=== PATIENT | female | born 1980 | race Caucasian/White ===

== ENCOUNTER 2020-02-09 16:21 | Emergency (ER) | payer BC, SELFPAY ==
[2020-02-09 16:22] VITALS: BP 122/84; PULSE 84; RESP 17; TEMP 36.9; O2SAT 98; BMI 34.1
--- NOTE | 2020-02-09 16:42 | HMH.EDUTC ---
[facility] [place] Clinical Impression: Sinusitis Qualifiers: Sinusitis location: unspecified location Chronicity: unspecified Qualified Code(s): J32.9 - Chronic sinusitis, unspecified Disposition: Home, Self-Care Condition on Discharge: Good Instructions: Sinusitis, Sinus Headache, DI for Sinusitis, Methylprednisolone, Azithromycin Additional Instructions: *Monitor Temp, Over the counter Motrin or Tylenol as directed/as needed Tylenol every 4 hours and Motrin every 6 hours (as long as your family doctor has told you that you can take it) for fever or pain. and straight to ER if unable to lower temp less than 101.0 after medication given *Warm salt water gargles may help to soothe the throat *Throat Lozenges *Warm fluids like tea with honey may help to soothe the throat *Sleep elevated *Humidifier/Vaporizer *Flonase 2 sprays in each nostril daily but be aware that it may take 2-3 days before you notice improvement Your throat swab was sent for culture. Those results are typically sent to your primary care. Be sure to follow up in 2-3 days with your family doctor/primary care physician if no improvement so they can review those result and treat if necessary. If you don?t have a primary care doctor, I recommend you get one but in the mean time, you will have to return to a walk in clinic Follow up IMMEDIATELY for new or worsening symptoms or no Noticeable improvement over the next 48-72 hours. 911 for difficulty breathing or swallowing Prescriptions: Fluticasone Propionate [Flonase 50mcg nasal spray 16gm] 1 spr NS DAILY #1 bottle Transmission Status: Pending to [facility] methylPREDNISolone [Medrol 4mg tab] 4 mg PO DIRECTED #21 tab Transmission Status: Pending to [facility] Azithromycin [Z-Spike 250mg Tab] 250 mg PO DIRECTED #6 tab Transmission Status: Pending to [facility] Referrals: Willa Mercado PA [Primary Care Provider] - As needed Time of Disposition: 16:50 Medical Decision Making - Shamir Inquiry Pt receiving controlled substance: No Shamir was queried for this patient: No Vital Signs: 02/09/20 16:22 Temperature 98.4 F Temperature Source Oral Pulse Rate [Radial] 84 Respiratory Rate 17 Blood Pressure [Right Arm] 122/84 Blood Pressure Mean [Right Arm] 96 Blood Pressure Source [Right Arm] Automatic Cuff Blood Pressure Position [Right Arm] Sitting 02 Sat by Pulse Oximetry 98 Oxygen Delivery Method Room Air - Lab Data Lab results reviewed: Yes: I reviewed the patient's lab results. Lab Results 02/09/20 16:38: Strep Scn Rapid Clinic Negative Orders (Tests/Meds): ORDERS Category Date Time Status Strep Screen Confirmation Stat Micro 02/09/20 16:38 [place]ceived [facility] [place] - General Stated complaint: PICKETT,Sore throat,Cough, Time Seen by Provider: 02/09/20 16:42 Mode of Arrival: Ambulatory Source of Information: Patient Limitations: No Limitations Description of Symptoms (Recalled from Triage Doc. by RN): headache, dizziness, cough, sore throat, runny nose, since yesterday HEENT Symptoms (Recalled from RN notes): Yes Resp Symptoms (Recalled from RN notes): No Skin Symptoms (Recalled from RN notes): No MS Symptoms (Recalled from RN notes): No Functional Status (Recalled from RN notes): wnl - History of Present Illness Provider Complaint: Patient states that she feels like she has a sinus infection State that she has been having sinus pain and pressure, headache, sore throat and nasal congestion on and off for over a week that has continued to get worse since yesterday States that today she was having more pressure in her right sinuses - Related Data Previous Rx's Medication Instructions Recorded Azithromycin [Z-Spike 250mg Tab] 250 mg PO DIRECTED #6 tab 02/09/20 Fluticasone Propionate [Flonase 1 spr NS DAILY #1 bottle 02/09/20 50mcg nasal spray 16gm] methylPREDNISolone [Medrol 4mg 4 mg PO DIRECTED #21 tab 02/09/20 tab] All
[2020-02-09 16:45] LABS: UTC Strep Screen (Rapid) Negative (Negative)
[2020-02-09 16:56] VITALS: BP 122/84; PULSE 84; RESP 17; TEMP 36.9; O2SAT 98
== END 2020-02-09 16:58 | disposition home or self-care (01) ==
PROVIDERS: Emergency Provider Nurse Practitioner; PCP Physician Assistant
DX: J32.9 Chronic sinusitis, unspecified (principal); Z88.0 Allergy status to penicillin; Z88.5 Allergy status to narcotic agent
CPT/HCPCS: 87880; 99201

== ENCOUNTER → 2020-04-18 08:42 | Outpatient (CLI) | payer BC, SELFPAY ==
[2020-04-18 09:11] LABS: Basophils # 0.1 K/mm3 (0-0.2); Basophils % 1.4 % (0.1-2.0); Eosinophils # 0.1 K/mm3 (0.0-0.4); Eosinophils % 2.5 % (0.1-12.0); Hemoglobin 14.2 g/dL (12.2-16.2); Lymphocytes # 2.1 K/mm3 (0.7-4.5); Lymphocytes % 38.7 % (10-50); Mean Corpuscular HGB Conc 34.5 g/dL (31.8-35.4); Mean Corpuscular Hemoglobin 30.5 pg (27.0-31.2); Mean Corpuscular Volume 88.2 fl (81-99); Mean Platelet Volume 8.3 fl (7.4-10.4); Monocytes # 0.3 K/mm3 (0.1-1.0); Monocytes % 5.8 % (1.7-9.3); Neutrophils # 2.8 K/mm3 (1.8-7.8); Neutrophils % 51.6 % (37.0-80.0); Platelet Count 265 K/mm3 (142-424); Red Blood Count 4.65 M/mm3 (4.20-5.40); Red Cell Distribution Width 13.2 % (11.5-17.5); White Blood Count 5.4 K/mm3 (4.8-10.8)
[2020-04-18 09:38] LABS: Alanine Aminotransferase 17 U/L (12-78); Albumin Level 4.3 g/dl (3.5-5.0); Albumin/Globulin Ratio 1.6 (1.1-1.8); Alkaline Phosphatase 91 U/L (38-126); Anion Gap 13.5 mEq/L (5-15); Aspartate Amino Transferase 24 U/L (14-36); Bilirubin,Total 0.5 mg/dl (0.2-1.3); Blood Urea Nitrogen 13 mg/dl (7-17); Calcium 9.7 mg/dl (8.4-10.2); Carbon Dioxide 29 mmol/L (22.0-30.0); Chloride 101 mmol/L (98-107); Chol/HDL Ratio 4.5 (1-3.5); Cholesterol 256 mg/dl (140-200); Estimated Glomerular Filt Rate 94 ml/min (>60); GFR (African American) 113 ML/MIN (>60); Globulin 2.7 g/dL (1.3-3.2); Glucose 121 mg/dl (74-100); HDL Cholesterol 57 mg/dl (40-60); Potassium 4.5 mmoL/L (3.5-5.1); Sodium 139 mmol/L (136-145); Triglycerides 164 mg/dl (30-150); VLDL Cholesterol 33 mg/dL (0-40)
[2020-04-18 09:49] LABS: Direct LDL Cholesterol 168.16 mg/dL (100-129)
[2020-04-18 09:55] LABS: 25-OH Vitamin D, Total 45.1 ng/mL (30-100)
[2020-04-18 10:09] LABS: Thyroid Stimulating Hormone 3.23 uIU/mL (0.465-4.68)
== END ==
PROVIDERS: Visit Provider Nurse Practitioner Family
DX: D64.9 Anemia, unspecified (principal); G43.909 Migraine, unspecified, not intractable, without status migrainosus
CPT/HCPCS: 36415; 80053; 80061; 82306; 84443; 85025

== ENCOUNTER 2020-10-12 09:02 | Emergency (ER) | payer BC, SELFPAY ==
--- NOTE | 2020-10-12 08:58 | ECG_ITS ---
APPROVED REPORT Exam: Resting ECG HR:73 bpm ECG Measurements Heart Rate 73 AXES IN 150 P 34 QRSd 88 QRS 38 QT 360 T 53 QTc 396 Conclusion Normal sinus rhythm Normal ECG Electronically signed by : Troy Gonzalez, 10/12/2020 17:46:15
[2020-10-12 09:02] VITALS: BP 128/90; PULSE 88; RESP 16; TEMP 36.8; O2SAT 98; BMI 37.2
[2020-10-12 09:03] VITALS: BMI 37.2
--- NOTE | 2020-10-12 09:03 | HMH.EDCP ---
ED Disposition Clinical Impression: Chest pain Qualifiers: Chest pain type: unspecified Qualified Code(s): R07.9 - Chest pain, unspecified Disposition: Home, Self-Care Condition on Discharge: Good Referrals: Javi Jenkins MD [Primary Care Provider] - 3 days - Critical Care Critical Care Time: No Attestation: On , the high probability of a clinically significant, sudden or life threatening deterioration of the following system(s) required my full and direct attention, intervention and personal management. The time I documented below is in addition to time spent performing reported procedures but includes the following listed in this critical care notation. Medical Decision Making - Medical Records Medical records reviewed: Yes: I reviewed the patient's medical records. - Shamir Inquiry Pt receiving controlled substance: No Vital Signs: 10/12/20 09:02 10/12/20 09:26 Temperature 98.2 F Temperature Source Oral Pulse Rate [Right Radial] 88 20 L Respiratory Rate 16 20 Blood Pressure [Right Arm] 128/90 126/90 Blood Pressure Mean [Right Arm] 102 102 Blood Pressure Source [Right Arm] Automatic Cuff Blood Pressure Position [Right Arm] Sitting 02 Sat by Pulse Oximetry 98 96 Oxygen Delivery Method Room Air - Lab Data Lab results reviewed: Yes: I reviewed the patient's lab results. Lab Results 10/12/20 09:00: WBC 6.5, RBC 4.97, Hgb 14.6, Hct 45.0, MCV 90.6, MCH 29.3, MCHC 32.4, RDW 12.9, Plt Count 267, MPV 8.2, Neut % (Auto) 58.4, Lymph % (Auto) 34.1, [place] % (Auto) 5.0, Eos % (Auto) 1.6, Baso % (Auto) 0.9, Neut # (Auto) 3.8, Lymph # (Auto) 2.2, [place] # (Auto) 0.3, Eos # (Auto) 0.1, Baso # (Auto) 0.1 10/12/20 09:00: Sodium 138, Potassium 4.0, Chloride 104, Carbon Dioxide 29, Anion Gap 9.0, BUN 10, Creatinine 0.70, Estimated Creat Clear 168, Estimated GFR 93, Est GFR ( Amer) 113, Glucose 140 H, Calcium 9.8, Troponin I < 0.01 Result diagrams: 10/12/20 09:00 10/12/20 09:00 Orders (Tests/Meds): ED MEDICATIONS Discontinued Medications Generic Name Dose Route Start Last Admin Trade Name Khushi SHORT Reason Stop Dose Admin Aspirin 324 mg 10/12/20 09:04 10/12/20 09:08 Aspirin 81mg Chewable Tablet PO 10/12/20 09:05 324 mg ONCE ONE Administration ORDERS Category Date Time Status Troponin I Q3H Lab 10/12/20 12:15 Ordered Troponin I Q3H Lab 10/12/20 15:15 Ordered - ECG Data Tracing #1 Normal sinus rhythm, 73 bpm, no ST elevation or depression, no ectopy, normal intervals. ECG initial impression date: 10/12/20 ECG initial impression time: 09:02 - SRIDHAR Score for Non-Stemi Age of Patient: 30-39 years old Heart Rate: 70-89 bpm Systolic Blood Pressure: 120-139 mmhg Serum Creatinine: 0.40-0.79 mg/dl CHF [place] Class: I-No CHF Other Risk Factors: None Non-Stemi Risk Score: 55 Medical Decision Narrative: 40yo F evaluated for chest pain. Differential diagnosis includes was not limited to: ACS/VA, PE, pneumonia, anxiety, aortic injury, GERD. Patient is in no acute distress on initial evaluation. Cardiac work-up has been initiated. Patient received 324 mg of p.o. aspirin. Patient's labs are unremarkable. Her chest x-ray is unremarkable. EKG is normal sinus rhythm without abnormal finding. All these results were discussed with the patient at bedside. Encouraged patient to follow-up with her PCP for further outpatient testing. Patient's SRIDHAR cardiac score is low risk. She is appropriate and stable for discharge home at this time. Chest Pain HPI - General Stated Complaint: CHEST PAIN Time Seen by Provider: 10/12/20 09:03 Mode of Arrival: Ambulatory Source of Information: Patient Limitations: No Limitations - History of Present Illness HPI narrative: 40yo F reports the emergency department secondary to chest pain. Patient reports chest pain has waxed and waned since Saturday. She reports her left arm pain is constant. She denies exertional component to her chest
--- NOTE | 2020-10-12 09:04 | XR_ITS ---
PROCEDURE: XR CHEST PORTABLE CLINICAL HISTORY: CHEST PAIN COMPARISON: No exams were available for comparison FINDINGS: The cardiomediastinal silhouette and pulmonary vascularity are within normal limits. The lungs are clear without infiltrates, suspicious nodules, or pleural effusions. No acute bony abnormalities. IMPRESSION: No acute findings. Dictated by: Shine Pelayo MD 10/12/2020 09:42 Shine Pelayo MD in [place] 10/12/2020 09:42
[2020-10-12 09:20] LABS: Chloride 104 mmol/L (98-107); Sodium 138 mmol/L (136-145)
[2020-10-12 09:23] LABS: Blood Urea Nitrogen 10 mg/dl (7-17); Carbon Dioxide 29 mmol/L (22.0-30.0); Creatinine Clearance Estimated 168 mL/min (50-200); Estimated Glomerular Filt Rate 93 ml/min (>60); GFR (African American) 113 ML/MIN (>60)
[2020-10-12 09:24] LABS: Calcium 9.8 mg/dl (8.4-10.2); Glucose 140 mg/dl (74-100)
[2020-10-12 09:26] VITALS: BP 126/90; PULSE 20; RESP 20; O2SAT 96
[2020-10-12 09:32] VITALS: PULSE 68; RESP 20; O2SAT 98
[2020-10-12 09:32] LABS: Basophils # 0.1 K/mm3 (0-0.2); Basophils % 0.9 % (0.1-2.0); Eosinophils # 0.1 K/mm3 (0.0-0.4); Eosinophils % 1.6 % (0.1-12.0); Hemoglobin 14.6 g/dL (12.2-16.2); Lymphocytes # 2.2 K/mm3 (0.7-4.5); Lymphocytes % 34.1 % (10-50); Mean Corpuscular HGB Conc 32.4 g/dL (31.8-35.4); Mean Corpuscular Hemoglobin 29.3 pg (27.0-31.2); Mean Corpuscular Volume 90.6 fl (81-99); Mean Platelet Volume 8.2 fl (7.4-10.4); Monocytes # 0.3 K/mm3 (0.1-1.0); Neutrophils # 3.8 K/mm3 (1.8-7.8); Neutrophils % 58.4 % (37.0-80.0); Platelet Count 267 K/mm3 (142-424); Red Blood Count 4.97 M/mm3 (4.20-5.40); Red Cell Distribution Width 12.9 % (11.5-17.5); White Blood Count 6.5 K/mm3 (4.8-10.8)
[2020-10-12 10:02] VITALS: PULSE 78; RESP 17; O2SAT 99
[2020-10-12 10:06] LABS: Troponin I < 0.01 ng/ml (0.00-0.034)
[2020-10-12 10:26] VITALS: BP 119/88; PULSE 81; RESP 17; TEMP 36.7; O2SAT 98
== END 2020-10-12 10:27 | disposition home or self-care (01) ==
PROVIDERS: Emergency Provider Family Medicine; PCP Emergency Medicine
DX: R07.9 Chest pain, unspecified (principal); R11.2 Nausea with vomiting, unspecified; K21.9 Gastro-esophageal reflux disease without esophagitis; G43.909 Migraine, unspecified, not intractable, without status migrainosus; Z88.0 Allergy status to penicillin; Z88.5 Allergy status to narcotic agent
CPT/HCPCS: 71045; 80048; 84484; 85025; 93005; 99283

== ENCOUNTER → 2021-03-01 12:20 | Outpatient (CLI) | payer BC, SELFPAY ==
--- NOTE | 2021-03-01 12:24 | XR_ITS ---
PROCEDURE: XR FOOT WT BEARING LT 3V CLINICAL INDICATION: Foot pain COMPARISON: No exams were available for comparison FINDINGS: No fracture or dislocation. No lytic or blastic change. There is normal mineralization. The joint spaces are well-preserved. No significant degenerative/arthritic changes. No erosive changes evident. Other findings:None. IMPRESSION: No acute findings. Dictated by: Shine Pelayo MD 03/01/2021 13:23 Shine Pelayo MD in [place] 03/01/2021 13:23
[2021-03-01 14:07] LABS: Chloride 106 mmol/L (98-107)
[2021-03-01 14:08] LABS: Potassium 4.4 mmoL/L (3.5-5.1); Sodium 140 mmol/L (136-145)
[2021-03-01 14:10] LABS: Alanine Aminotransferase 18 U/L (12-78); Albumin Level 4.5 g/dl (3.5-5.0); Albumin/Globulin Ratio 1.6 (1.1-1.8); Alkaline Phosphatase 96 U/L (38-126); Anion Gap 13.4 mEq/L (5-15); Aspartate Amino Transferase 25 U/L (14-36); Bilirubin,Total 0.4 mg/dl (0.2-1.3); Blood Urea Nitrogen 12 mg/dl (7-17); Carbon Dioxide 25 mmol/L (22.0-30.0); Estimated Glomerular Filt Rate 111 ml/min (>60); GFR (African American) 135 ML/MIN (>60); Globulin 2.9 g/dL (1.3-3.2); Total Protein,Serum 7.4 g/dl (6.3-8.2)
[2021-03-01 14:11] LABS: Calcium 9.3 mg/dl (8.4-10.2); Chol/HDL Ratio 5.9 (1-3.5); Cholesterol 258 mg/dl (140-200); Glucose 113 mg/dl (74-100); HDL Cholesterol 44 mg/dl (40-60); Triglycerides 267 mg/dl (30-150); VLDL Cholesterol 53 mg/dL (0-40)
[2021-03-01 14:22] LABS: Direct LDL Cholesterol 170.94 mg/dL (100-129)
[2021-03-01 14:29] LABS: Basophils # 0.1 K/mm3 (0-0.2); Basophils % 1.4 % (0.1-2.0); Eosinophils # 0.1 K/mm3 (0.0-0.4); Eosinophils % 1.7 % (0.1-12.0); Hematocrit 39.8 % (37.0-47.0); Hemoglobin 13.7 g/dL (12.2-16.2); Lymphocytes # 2.2 K/mm3 (0.7-4.5); Lymphocytes % 37.2 % (10-50); Mean Corpuscular HGB Conc 34.3 g/dL (31.8-35.4); Mean Corpuscular Hemoglobin 29.8 pg (27.0-31.2); Mean Corpuscular Volume 86.9 fl (81-99); Mean Platelet Volume 11.1 fl (7.4-10.4); Monocytes # 0.4 K/mm3 (0.1-1.0); Monocytes % 6.2 % (1.7-9.3); Neutrophils # 3.1 K/mm3 (1.8-7.8); Neutrophils % 53.6 % (37.0-80.0); Platelet Count 303 K/mm3 (142-424); Red Blood Count 4.58 M/mm3 (4.20-5.40); Red Cell Distribution Width 13.1 % (11.5-17.5); White Blood Count 5.9 K/mm3 (4.8-10.8)
[2021-03-01 14:41] LABS: Thyroid Stimulating Hormone 2.61 uIU/mL (0.465-4.68)
[2021-03-01 14:53] LABS: Hemoglobin A1C 5.2 % (4.0-6.0)
[2021-03-10 10:31] LABS: Cotinine <1.0; Nicotine <1.0
== END ==
PROVIDERS: PCP Nurse Practitioner Family; Visit Provider Nurse Practitioner Family
DX: Z00.00 Encounter for general adult medical examination without abnormal findings (principal); M79.672 Pain in left foot
CPT/HCPCS: 73630; 80053; 80061; 80323; 83036; 84443; 85025

== ENCOUNTER → 2021-05-03 15:05 | Outpatient (CLI) | payer BC, SELFPAY ==
[2021-05-03 17:01] VITALS: BMI 37.0
== END ==
PROVIDERS: PCP Nurse Practitioner Family; Visit Provider Nurse Practitioner Family
DX: Z71.3 Dietary counseling and surveillance (principal); E66.3 Overweight; Z68.37 Body mass index [BMI] 37.0-37.9, adult; R73.03 Prediabetes
CPT/HCPCS: 97802

== ENCOUNTER → 2022-09-10 16:14 | Outpatient (CLI) | payer BC, SELFPAY ==
[2022-09-13 21:08] LABS: Neisseria gonorrhoeae, NAA Negative (Negative)
== END ==
PROVIDERS: PCP Student in an Organized Health Care Education/Training Program; Visit Provider Student in an Organized Health Care Education/Training Program
DX: R30.0 Dysuria (principal)
CPT/HCPCS: 87086; 87491; 87591

== ENCOUNTER → 2022-09-14 11:59 | Outpatient (CLI) | payer BC, SELFPAY ==
[2022-09-14 13:44] LABS: Basophils # 0.1 K/mm3 (0-0.2); Basophils % 1.6 % (0.1-2.0); Eosinophils # 0.1 K/mm3 (0.0-0.4); Hematocrit 42.1 % (37.0-47.0); Lymphocytes # 2.1 K/mm3 (0.7-4.5); Lymphocytes % 36.3 % (10-50); Mean Corpuscular HGB Conc 33.3 g/dL (31.8-35.4); Mean Corpuscular Hemoglobin 29.9 pg (27.0-31.2); Mean Corpuscular Volume 89.7 fl (81-99); Mean Platelet Volume 9.3 fl (7.4-10.4); Monocytes # 0.4 K/mm3 (0.1-1.0); Monocytes % 6.2 % (1.7-9.3); Neutrophils # 3.2 K/mm3 (1.8-7.8); Neutrophils % 54.9 % (37.0-80.0); Platelet Count 265 K/mm3 (142-424); Red Blood Count 4.69 M/mm3 (4.20-5.40); Red Cell Distribution Width 12.9 % (11.5-17.5); White Blood Count 5.8 K/mm3 (4.8-10.8)
[2022-09-14 14:06] LABS: Alanine Aminotransferase 22 U/L (12-78); Albumin Level 4.9 g/dl (3.5-5.0); Albumin/Globulin Ratio 1.8 (1.1-1.8); Alkaline Phosphatase 79 U/L (38-126); Anion Gap 13.1 mEq/L (5-15); Aspartate Amino Transferase 28 U/L (14-36); Bilirubin,Total 0.6 mg/dl (0.2-1.3); Blood Urea Nitrogen 9 mg/dl (7-17); Calcium 9.2 mg/dl (8.4-10.2); Carbon Dioxide 28 mmol/L (22.0-30.0); Chloride 103 mmol/L (98-107); Chol/HDL Ratio 4.6 (1-3.5); Cholesterol 221 mg/dl (140-200); Estimated Glomerular Filt Rate 92 ml/min (>60); GFR (African American) 112 ML/MIN (>60); Globulin 2.8 g/dL (1.3-3.2); Glucose 98 mg/dl (74-100); HDL Cholesterol 48 mg/dl (40-60); Potassium 4.1 mmoL/L (3.5-5.1); Sodium 140 mmol/L (136-145); Total Protein,Serum 7.7 g/dl (6.3-8.2); Triglycerides 163 mg/dl (30-150); VLDL Cholesterol 33 mg/dL (0-40)
[2022-09-14 14:17] LABS: Direct LDL Cholesterol 134.65 mg/dL (100-129)
[2022-09-14 14:24] LABS: 25-OH Vitamin D, Total 44.6 ng/mL (30-100)
[2022-09-14 14:37] LABS: Thyroid Stimulating Hormone 2.02 uIU/mL (0.465-4.68)
[2022-09-14 17:23] LABS: Hemoglobin A1C 5.6 % (4.0-6.0)
== END ==
PROVIDERS: PCP Student in an Organized Health Care Education/Training Program; Visit Provider Obstetrics & Gynecology
DX: Z01.419 Encounter for gynecological examination (general) (routine) without abnormal findings (principal); E66.9 Obesity, unspecified; Z68.35 Body mass index [BMI] 35.0-35.9, adult
CPT/HCPCS: 36415; 80053; 80061; 82306; 83036; 84443; 85025

== ENCOUNTER → 2022-11-01 11:00 | Outpatient (CLI) | payer BC, SELFPAY ==
[2022-11-01 19:09] LABS: Basophils # 0.1 K/mm3 (0-0.2); Basophils % 1.2 % (0.1-2.0); Eosinophils # 0.1 K/mm3 (0.0-0.4); Eosinophils % 1.4 % (0.1-12.0); Hematocrit 45.2 % (37.0-47.0); Hemoglobin 14.6 g/dL (12.2-16.2); Lymphocytes # 1.9 K/mm3 (0.7-4.5); Lymphocytes % 35.5 % (10-50); Mean Corpuscular HGB Conc 32.4 g/dL (31.8-35.4); Mean Corpuscular Hemoglobin 29.1 pg (27.0-31.2); Mean Corpuscular Volume 90.1 fl (81-99); Mean Platelet Volume 12.2 fl (7.4-10.4); Monocytes # 0.3 K/mm3 (0.1-1.0); Monocytes % 5.6 % (1.7-9.3); Neutrophils % 56.3 % (37.0-80.0); Platelet Count 320 K/mm3 (142-424); Red Blood Count 5.02 M/mm3 (4.20-5.40); Red Cell Distribution Width 12.8 % (11.5-17.5); White Blood Count 5.3 K/mm3 (4.8-10.8)
[2022-11-01 19:23] LABS: Alanine Aminotransferase 20 U/L (12-78); Albumin Level 4.4 g/dl (3.5-5.0); Albumin/Globulin Ratio 1.7 (1.1-1.8); Alkaline Phosphatase 82 U/L (38-126); Anion Gap 13.8 mEq/L (5-15); Aspartate Amino Transferase 24 U/L (14-36); Bilirubin,Total 0.7 mg/dl (0.2-1.3); Blood Urea Nitrogen 12 mg/dl (7-17); Calcium 8.8 mg/dl (8.4-10.2); Carbon Dioxide 26 mmol/L (22.0-30.0); Chloride 102 mmol/L (98-107); Chol/HDL Ratio 5.7 (1-3.5); Cholesterol 249 mg/dl (140-200); Estimated Glomerular Filt Rate 79 ml/min (>60); GFR (African American) 96 ML/MIN (>60); Globulin 2.6 g/dL (1.3-3.2); Glucose 108 mg/dl (74-100); HDL Cholesterol 44 mg/dl (40-60); Magnesium 2.1 mg/dl (1.6-2.3); Potassium 4.8 mmoL/L (3.5-5.1); Sodium 137 mmol/L (136-145); Triglycerides 173 mg/dl (30-150); VLDL Cholesterol 35 mg/dL (0-40)
[2022-11-01 19:34] LABS: Direct LDL Cholesterol 158.86 mg/dL (100-129)
[2022-11-01 19:53] LABS: Thyroid Stimulating Hormone 2.06 uIU/mL (0.465-4.68)
[2022-11-01 20:12] LABS: Vitamin B12 308 pg/mL (239-931)
== END ==
PROVIDERS: PCP Student in an Organized Health Care Education/Training Program; Visit Provider Student in an Organized Health Care Education/Training Program
DX: R42 Dizziness and giddiness (principal); Z13.220 Encounter for screening for lipoid disorders; Z79.899 Other long term (current) drug therapy
CPT/HCPCS: 80053; 80061; 82607; 83735; 84443; 85025

== ENCOUNTER → 2023-07-01 11:49 | Outpatient (CLI) | payer BC, SELFPAY ==
[2023-07-01 12:10] LABS: Basophils # 0.1 K/mm3 (0-0.2); Basophils % 0.7 % (0.1-2.0); Eosinophils # 0.1 K/mm3 (0.0-0.4); Hematocrit 38.3 % (37.0-47.0); Hemoglobin 13.5 g/dL (12.2-16.2); Lymphocytes % 28.2 % (10-50); Mean Corpuscular HGB Conc 35.2 g/dL (31.8-35.4); Mean Corpuscular Hemoglobin 31.2 pg (27.0-31.2); Mean Corpuscular Volume 88.5 fl (81-99); Mean Platelet Volume 8.9 fl (7.4-10.4); Monocytes # 0.3 K/mm3 (0.1-1.0); Monocytes % 4.8 % (1.7-9.3); Neutrophils # 4.5 K/mm3 (1.8-7.8); Neutrophils % 64.4 % (37.0-80.0); Platelet Count 242 K/mm3 (142-424); Red Blood Count 4.32 M/mm3 (4.20-5.40); Red Cell Distribution Width 12.7 % (11.5-17.5)
--- NOTE | 2023-07-01 12:10 | XR_ITS ---
FINAL REPORT CLINICAL HISTORY: pleuritic pain chest pain since last night FINDINGS: 2 views of the chest were obtained . The heart is normal in size. The mediastinum is within normal limits. The lungs are clear. There is no pneumothorax. Osseous structures are unremarkable. IMPRESSION: No acute cardiopulmonary process. Reviewed, Interpreted and Dictated by Guillermo Arias MD Transcribed by Dominique Suarez Authenticated and [facility]
[2023-07-01 12:20] LABS: Hemoglobin A1C 5.7 % (4.0-6.0)
[2023-07-01 12:21] LABS: D-Dimer 0.77 ug/mL (0.0-0.5)
[2023-07-01 12:35] LABS: Alanine Aminotransferase 18 U/L (12-78); Albumin/Globulin Ratio 1.5 (1.1-1.8); Alkaline Phosphatase 86 U/L (38-126); Anion Gap 10.9 mEq/L (5-15); Aspartate Amino Transferase 22 U/L (14-36); Bilirubin,Total 0.6 mg/dl (0.2-1.3); Blood Urea Nitrogen 10 mg/dl (7-17); Calcium 8.7 mg/dl (8.4-10.2); Carbon Dioxide 28 mmol/L (22.0-30.0); Chloride 103 mmol/L (98-107); Chol/HDL Ratio 5.6 (1-3.5); Cholesterol 228 mg/dl (140-200); Estimated Glomerular Filt Rate 79 ml/min (>60); GFR (African American) 95 ML/MIN (>60); Globulin 2.7 g/dL (1.3-3.2); Glucose 127 mg/dl (74-100); HDL Cholesterol 41 mg/dl (40-60); Potassium 3.9 mmoL/L (3.5-5.1); Sodium 138 mmol/L (136-145); Total Protein,Serum 6.7 g/dl (6.3-8.2); Triglycerides 226 mg/dl (30-150); VLDL Cholesterol 45 mg/dL (0-40)
[2023-07-01 12:47] LABS: Direct LDL Cholesterol 144.68 mg/dL (100-129)
[2023-07-01 12:52] LABS: Troponin I < 0.01 ng/ml (0.00-0.034)
[2023-07-01 12:56] LABS: 25-OH Vitamin D, Total 33.4 ng/mL (30-100)
[2023-07-01 13:05] LABS: Thyroid Stimulating Hormone 1.71 uIU/mL (0.465-4.68)
== END ==
PROVIDERS: PCP Student in an Organized Health Care Education/Training Program; Visit Provider Student in an Organized Health Care Education/Training Program
DX: E78.00 Pure hypercholesterolemia, unspecified (principal); Z13.29 Encounter for screening for other suspected endocrine disorder; R07.81 Pleurodynia; R73.9 Hyperglycemia, unspecified; Z68.37 Body mass index [BMI] 37.0-37.9, adult
CPT/HCPCS: 36415; 71046; 80053; 80061; 82306; 83036; 84443; 84484; 85025; 85378

== ENCOUNTER 2023-07-01 13:26 | Emergency (ER) | payer BC, SELFPAY ==
[2023-07-01] VITALS (8 sets, daily range): BP systolic 104–142; BP diastolic 63–84; PULSE 71–83; RESP 16–24; TEMP 37.1; O2SAT 95–100; BMI 36.7
--- NOTE | 2023-07-01 13:23 | ECG_ITS ---
APPROVED REPORT Exam: Resting ECG HR:75 bpm ECG Measurements Heart Rate 75 AXES NM 145 P 35 QRSd 89 QRS 61 QT 357 T 56 QTc 386 Conclusion SINUS RHYTHM LOW QRS VOLTAGE IN PRECORDIAL LEADS [QRS DEFLECTION < 1.0 mV IN CHEST LEADS] BORDERLINE ECG UNCONFIRMED REPORT Electronically signed by : Troy Gonzalez MD 07/02/2023 20:13:02
[2023-07-01 13:42] LABS: Basophils % 0.5 % (0.1-2.0); Eosinophils # 0.1 K/mm3 (0.0-0.4); Eosinophils % 1.5 % (0.1-12.0); Hematocrit 40.2 % (37.0-47.0); Hemoglobin 13.9 g/dL (12.2-16.2); Lymphocytes # 2.2 K/mm3 (0.7-4.5); Mean Corpuscular HGB Conc 34.6 g/dL (31.8-35.4); Mean Corpuscular Hemoglobin 30.6 pg (27.0-31.2); Mean Corpuscular Volume 88.4 fl (81-99); Mean Platelet Volume 8.6 fl (7.4-10.4); Monocytes # 0.5 K/mm3 (0.1-1.0); Neutrophils # 5.2 K/mm3 (1.8-7.8); Platelet Count 232 K/mm3 (142-424); Red Blood Count 4.55 M/mm3 (4.20-5.40); Red Cell Distribution Width 12.8 % (11.5-17.5)
--- NOTE | 2023-07-01 13:49 | HMH.EDGENADL ---
Discharge Plan Disposition Patient Disposition: Home, Self-Care Prescriptions Prescriptions: No Action aspirin 81 mg tablet,delayed release (DR/EC) 81 mg PO DAILY Qty: 30 2RF atorvastatin 20 mg tablet 20 mg PO DAILY Qty: 30 2RF fluticasone propionate [Allergy Relief (fluticasone)] 50 mcg/actuation spray,suspension 1 spray intranasal DAILY Qty: 16 2RF Rx Instructions: administer into each nostril naproxen 500 mg tablet 500 mg PO BID Qty: 20 0RF Referrals Follow up/Referrals: Keyshawn Jurado MD [Staff Physician] - See instructions Provider,MD Rosendo [Referring] - See instructions Activity Restrictions/Add. Instructions Additional Instructions/Restrictions: At this time it was felt you are safe to be discharged home. If new or worsening symptoms please do not hesitate to return the emergency department. Please call Dr. Jurado to schedule an appointment as soon as you are able. Clinical Impressions Clinical Impression: Chest pain, pleuritic Instructions Patient Instructions: DI for Atypical Chest Pain Discharge ED Provider: Wes Tobar General Adult HPI <Jose L Montemayor MD - Last Filed: 07/03/23 08:08> General Chief complaint: Chest Pain Stated complaint: chest pain Time Seen by Provider: 07/01/23 13:30 Mode of Arrival: Ambulatory Source of Information: Patient Limitations: No Limitations Description of Symptoms (Recalled from ER Triage Doc. by RN): pt has been having chest pain and soa off and on for two weeks, pt was seen at pcp office this morning and had lab work done, xray and ekg. pt has hx of CA in 2016 with negative clean cath at [facility] History of Present Illness HPI narrative: 43-year-old female history of vasospastic angina presenting with chest pain. Patient states that pain started a couple days prior to arrival, got acutely worse today, 07/01 in her sleep. Woke her up. Initially in her back, since that time, it is now left of sternum, radiates toward her back, associated with shortness of breath. Made worse with deep inspiration, lying down, made made better by standing up. No neurologic deficits, nausea or vomiting, diaphoresis, or any other concerns. Because of history, came to the emergency department for further evaluation. Patient states that she is also under significant stress with school and thinks this may be related, but wanted to be checked out just in case. Related Data Previous Rx's Medication Instructions Recorded aspirin 81 mg tablet,delayed 81 mg PO DAILY #30 tabs 07/01/23 release atorvastatin 20 mg tablet 20 mg PO DAILY #30 tabs 07/01/23 fluticasone propionate 50 1 spray intranasal DAILY #16 grams 07/01/23 mcg/actuation nasal spray,suspension (Allergy Relief (fluticasone)) naproxen 500 mg tablet 500 mg PO BID #20 tabs 07/01/23 Allergies Allergy/AdvReac Type Severity Reaction Status Date / Time codeine Allergy Mild Verified 07/02/23 14:37 hydrocodone [From Vicodin] Allergy Mild Verified 07/02/23 14:37 oxycodone [From Percocet] Allergy Mild Verified 07/02/23 14:37 Penicillins Allergy Mild Verified 07/02/23 14:37 [facility] <Jose L Montemayor MD - Last Filed: 07/03/23 08:08> [facility] Disclaimer: The information contained in this section may have been updated after the patient was seen, as this information can be updated by other users. Medical History (Updated 07/02/23 @ 15:02 by Messi Varner RN) Dyspnea Edema Family history of bladder cancer Family history of cervical cancer Family history of uterine cancer Heart attack History of abnormal cervical Papanicolaou smear History of heart attack Lichen sclerosus of vulva Prinzmetal angina Urinary frequency Vaginal pain Vulvodynia Surgical History History of bilateral tubal ligation History of laparoscopic-assisted vaginal hysterectomy History of reversal of tubal ligation Family History (Reviewed 07/02/23 @ 14:39 by
[2023-07-01 13:50] LABS: Alanine Aminotransferase 21 U/L (12-78); Albumin Level 4.3 g/dl (3.5-5.0); Albumin/Globulin Ratio 1.3 (1.1-1.8); Alkaline Phosphatase 86 U/L (38-126); Anion Gap 13.7 mEq/L (5-15); Aspartate Amino Transferase 24 U/L (14-36); Bilirubin,Total 0.5 mg/dl (0.2-1.3); Blood Urea Nitrogen 11 mg/dl (7-17); Carbon Dioxide 27 mmol/L (22.0-30.0); Chloride 104 mmol/L (98-107); Creatinine Clearance Estimated 140 mL/min (50-200); Estimated Glomerular Filt Rate 79 ml/min (>60); GFR (African American) 95 ML/MIN (>60); Globulin 3.3 g/dL (1.3-3.2); Glucose 98 mg/dl (74-100); Lipase 70 U/L (23-300); Potassium 3.7 mmoL/L (3.5-5.1); Sodium 141 mmol/L (136-145); Total Protein,Serum 7.6 g/dl (6.3-8.2)
[2023-07-01 14:04] LABS: Troponin I < 0.01 ng/ml (0.00-0.034)
[2023-07-01 14:21] LABS: Thyroid Stimulating Hormone 2.05 uIU/mL (0.465-4.68)
--- NOTE | 2023-07-01 14:41 | CT_ITS ---
FINAL REPORT TECHNIQUE: The patient was injected with IV contrast. Axial images were obtained through the chest in a PE protocol. 3-D reconstruction images were also performed. Individualized dose reduction techniques using automated exposure control or adjustment of the MA and/or KV according to patient's size were employed. CLINICAL HISTORY: elevated dimer, pleuritic L CP FINDINGS: Mediastinal vasculature is adequately opacified. No pulmonary artery filling defects are identified to suggest PE. There is no aortic dissection. There is no axillary adenopathy. There is no hilar or mediastinal adenopathy. The heart size is normal. There is no pericardial or pleural effusion. Limited images of the upper abdomen are remarkable for a contracted gallbladder. There are mild ground glass opacities noted bilaterally. IMPRESSION: No pulmonary embolus or dissection. Mild bilateral ground glass opacities, nonspecific. Reviewed, Interpreted and Dictated by Guillermo Arias MD Transcribed by Audra Oswald Authenticated and [facility]
--- NOTE | 2023-07-01 14:54 | PC.NURSE ---
radiology at bedside to take pt to CT
[2023-07-01 15:22] LABS: T4 (Thyroxine) 6.8 ug/dl (5.53-11.0)
[2023-07-01 17:13] LABS: Troponin I < 0.01 ng/ml (0.00-0.034)
== END 2023-07-01 17:43 | disposition home or self-care (01) ==
PROVIDERS: Emergency Medicine; Emergency Provider Emergency Medicine; PCP Student in an Organized Health Care Education/Training Program; Referring Provider Student in an Organized Health Care Education/Training Program
DX: R07.9 Chest pain, unspecified (principal); R06.02 Shortness of breath
CPT/HCPCS: 36415; 71275; 80053; 83690; 84436; 84443; 84484; 85025; 93005; 99285; Q9967

== ENCOUNTER 2024-03-12 09:51 | Outpatient (CLI) | payer BC, SELFPAY ==
--- NOTE | 2024-03-12 09:57 | MM_ITS ---
PROCEDURE INFORMATION: Exam: MG Bilateral Screening 3D Mammography Exam date and time: 03/12/2024 9:46 AM Age: 43 years old Clinical indication: Screening examination TECHNIQUE: Imaging protocol: Bilateral Screening tomosynthesis and 2D mammography including computer-aided detection (CAD) when performed. COMPARISON: No relevant prior studies available. Baseline FINDINGS: MAMMOGRAPHY: Breast composition: There are scattered areas of fibroglandular density. Mass: None. Architectural distortion: None. Calcifications: No suspicious calcifications. Asymmetric density: Nonspecific tissue asymmetry in the posterior right upper outer quadrant likely reflects an island of normal overlapping fibroglandular structures. Skin thickening: None. Axillary adenopathy: None. IMPRESSION: Patient to be recalled for spot compression views of the right breast in the CC and MLO projections, a full 90 degree lateral view, and possible right breast ultrasound for further evaluation of a right breast asymmetry. ASSESSMENT: BI-RADS Category 0: Incomplete- Need Additional Imaging Evaluation and/or Prior Mammograms for Comparison.
[2024-03-12 18:23] LABS: Basophils # 0.1 K/mm3 (0-0.2); Basophils % 1.2 % (0.1-2.0); Eosinophils # 0.1 K/mm3 (0.0-0.4); Eosinophils % 1.4 % (0.1-12.0); Hematocrit 44.8 % (37.0-47.0); Hemoglobin 14.6 g/dL (12.2-16.2); Lymphocytes # 2.1 K/mm3 (0.7-4.5); Lymphocytes % 34.4 % (10-50); Mean Corpuscular HGB Conc 32.7 g/dL (31.8-35.4); Mean Corpuscular Hemoglobin 30.2 pg (27.0-31.2); Mean Corpuscular Volume 92.5 fl (81-99); Monocytes # 0.3 K/mm3 (0.1-1.0); Monocytes % 5.6 % (1.7-9.3); Neutrophils # 3.5 K/mm3 (1.8-7.8); Neutrophils % 57.5 % (37.0-80.0); Platelet Count 309 K/mm3 (142-424); Red Blood Count 4.84 M/mm3 (4.20-5.40); Red Cell Distribution Width 13.2 % (11.5-17.5); White Blood Count 6.1 K/mm3 (4.8-10.8)
[2024-03-12 18:30] LABS: Alanine Aminotransferase 29 U/L (12-78); Albumin Level 4.1 g/dl (3.5-5.0); Albumin/Globulin Ratio 1.4 (1.1-1.8); Alkaline Phosphatase 84 U/L (38-126); Anion Gap 10.6 mEq/L (5-15); Aspartate Amino Transferase 29 U/L (14-36); Bilirubin,Total 0.6 mg/dl (0.2-1.3); Blood Urea Nitrogen 11 mg/dl (7-17); Calcium 9.7 mg/dl (8.4-10.2); Carbon Dioxide 27 mmol/L (22.0-30.0); Chloride 106 mmol/L (98-107); Chol/HDL Ratio 6.4 (1-3.5); Cholesterol 293 mg/dl (140-200); Estimated Glomerular Filt Rate 92 ml/min (>60); GFR (African American) 111 ML/MIN (>60); Globulin 2.9 g/dL (1.3-3.2); Glucose 106 mg/dl (74-100); HDL Cholesterol 46 mg/dl (40-60); Potassium 4.6 mmoL/L (3.5-5.1); Sodium 139 mmol/L (136-145); Triglycerides 281 mg/dl (30-150); VLDL Cholesterol 56 mg/dL (0-40)
[2024-03-12 18:42] LABS: Direct LDL Cholesterol 180.53 mg/dL (100-129)
[2024-03-12 18:46] LABS: 25-OH Vitamin D, Total 37.4 ng/mL (30-100)
[2024-03-12 19:02] LABS: Thyroid Stimulating Hormone 1.78 uIU/mL (0.465-4.68)
[2024-03-12 19:59] LABS: Hemoglobin A1C 5.4 % (4.0-6.0)
[2024-03-12 20:04] LABS: Iron 118 ug/dL (37-170)
[2024-03-12 20:15] LABS: Total Iron Binding Capacity 343 ug/dL (265-497)
[2024-03-12 20:16] LABS: Folate > 20.00 ng/mL; Vitamin B12 363 pg/mL (239-931)
[2024-03-12 20:51] LABS: Ferritin 81.2 ng/ml (6.24-137)
== END 2024-03-12 23:59 | disposition home or self-care (01) ==
LOC: RAD 09:51
PROVIDERS: PCP Student in an Organized Health Care Education/Training Program; Visit Provider Obstetrics & Gynecology
DX: Z12.31 Encounter for screening mammogram for malignant neoplasm of breast (principal); R53.83 Other fatigue; E78.5 Hyperlipidemia, unspecified; R73.9 Hyperglycemia, unspecified; E66.9 Obesity, unspecified; Z68.35 Body mass index [BMI] 35.0-35.9, adult
CPT/HCPCS: 77063; 77067; 80050; 80053; 80061; 82306; 82607; 82728; 82746; 83036; 83540; 83550; 84443; 85025

== ENCOUNTER 2024-03-20 14:23 | Outpatient (CLI) | payer BC, SELFPAY ==
--- NOTE | 2024-03-20 14:23 | US_ITS ---
PROCEDURE INFORMATION: Exam: US Right Breast, Complete MG Right Diagnostic Breast Tomosynthesis Exam date and time: 03/20/2024 2:52 PM Age: 43 years old Clinical indication: Callback for additional assessment of upper outer posterior right possible asymmetry suspected on 03/12/2024 screening mammogram TECHNIQUE: Imaging protocol: Complete ultrasound of all four quadrants of the right breast and the retroareolar regions, including ultrasound of the axilla when performed. Right Diagnostic tomosynthesis and 2D mammography including computer-aided detection (CAD) when performed. Unilateral or bilateral exam. COMPARISON: MG MM DIG MAMM DX UNILAT RT CAD 03/20/2024 2:10 PM FINDINGS: MAMMOGRAPHY: Breast composition: There are scattered areas of fibroglandular density. Breast mammogram findings: No persistent mass, architectural distortion, or suspicious calcifications are present to suggest malignancy. Findings from recent screening mammography probably reflect overlapping fibroglandular tissue ULTRASOUND: Breast ultrasound findings: Right 4 quadrants and retroareolar breast ultrasound and right axilla ultrasound Only normal glandular structures are present in the regions assessed No suspicious solid or cystic mass is present. No benign-appearing solid or cystic mass is present. No architectural distortion or shadowing is present. No axillary adenopathy is present. IMPRESSION: No mammographic or sonographic evidence of malignancy. Recommend annual screening mammography unless otherwise clinically indicated. ASSESSMENT: BI-RADS category 1: Negative
== END 2024-03-20 23:59 | disposition home or self-care (01) ==
LOC: RAD 14:23
PROVIDERS: PCP Student in an Organized Health Care Education/Training Program; Visit Provider Obstetrics & Gynecology
DX: R92.8 Other abnormal and inconclusive findings on diagnostic imaging of breast (principal)
CPT/HCPCS: 76641; 77061; 77065; G0279

== ENCOUNTER 2024-12-03 10:15 | Outpatient (CLI) | payer BC, SELFPAY ==
[2024-12-04 09:00] LABS: Albumin Level 4.2 g/dl (3.5-5.0); Chloride 103 mmol/L (98-107)
[2024-12-04 09:01] LABS: Potassium 4.4 mmoL/L (3.5-5.1); Sodium 137 mmol/L (136-145)
[2024-12-04 09:03] LABS: Alanine Aminotransferase 42 U/L (12-78); Albumin/Globulin Ratio 1.5 (1.1-1.8); Alkaline Phosphatase 85 U/L (38-126); Anion Gap 12.4 mEq/L (5-15); Aspartate Amino Transferase 36 U/L (14-36); Bilirubin,Total 0.6 mg/dl (0.2-1.3); Blood Urea Nitrogen 10 mg/dl (7-17); Carbon Dioxide 26 mmol/L (22.0-30.0); Cholesterol 272 mg/dl (140-200); Estimated Glomerular Filt Rate 109 ml/min (>60); GFR (African American) 132 ML/MIN (>60); Globulin 2.8 g/dL (1.3-3.2); Triglycerides 289 mg/dl (30-150); VLDL Cholesterol 58 mg/dL (0-40)
[2024-12-04 09:04] LABS: Chol/HDL Ratio 5.9 (1-3.5); Glucose 120 mg/dl (74-100); HDL Cholesterol 46 mg/dl (40-60)
[2024-12-04 09:15] LABS: Direct LDL Cholesterol 178.79 mg/dL (100-129)
[2024-12-04 09:24] LABS: Free T4 (Free Thyroxine) 0.86 ng/dl (0.78-2.19)
[2024-12-04 09:38] LABS: Thyroid Stimulating Hormone 1.51 uIU/mL (0.465-4.68)
--- OUTSIDE RECORDS SUMMARY | 2024-12-04 11:40 | XMS_ITS | Clinical Summary ---
Author Organization [facility] , [facility] Address [address] [place] [address] Phone Care Team Providers Care Associate Merchant Name Role Phone Ronaldo Pereyra PA-C Unavailable Luz Marina Hernandez Unavailable [phone] Reason for Visit and Chief Complaint The Chief Complaint is: LOWER BACK PAIN & LEG PAIN Problems Includes: Problems addressed during this encounter and other active Problems Current Visit Onset Date Resolved Date Provider Aline appiah Status Lower Back Pain 03/13/2024 Ronaldo Pereyra PA-C Active Last Documented On 4 1:34PM ; [facility], [facility] Plan of Treatment Patient was seen by myself Javi Vital PA-C. Patient will follow up myself and Dr. Olguin after lumbar spine MRI. We will give her restrictions of seated work since he says anything that she is doing with bending or twisting or patient involvement has been waking this pain worse. - Last Documented On 03/25/2024 2:30PM ; [facility], [facility] Pending Tests Order Diagnosis Results Due Ordering P rovider Therapy - Physical Therapy Lumbar Low back pain, unspecified 03/18/24 Javi Vital PA-C Last Documented On 4 2:30PM ; [facility] Radiology - MRI MRI Lumbar Spine Low back pain, unspecified 04/01/24 Javi Vital PA-C Last Documented On 4 2:30PM ; [facility], [facility] Instructions to patient Lose weight Last Documented On 4 3:37PM ; [facility], [facility] Assessments Includes: Assessments from this encounter Findings - Overweight - Last Documented On 03/25/2024 2:30PM ; [facility], [facility] L4-L5 spondylolisthesis and right L5 radiculopathy - Last Documented On 03/25/2024 2:30PM ; [facility] Instructions Includes: Instructions from this encounter Instructions to patient Lose weight Last Documented On 4 3:37PM ; [facility] Medical Equipment - Implanted Devices Includes: Current Devices No Medical Equipment Recorded Medications Includes: Medications discussed during this encounter and other current Medications Current Medications (continue as prescribed) Atorvastatin Calcium 20 MG Oral Tablet 03/12/2024 Pr ovider: Diagnosis: Last Documented On 4 1:34PM By Matilda Alatorre ; [facility] Fluticasone Propionate 50 MCG/ACT Nasal Suspension Provider: Diagnosis: Last Documented On 4 1:34PM By Matilda Alatorre ; [facility] Past Medications on file Meloxicam 15 MG Oral Tablet 04/09/2024 - 06/08/2024 Pr ovider: Aamir Olguin MD Diagnosis: Take one tablet my mouth once a day Last Documented On 4 9:38AM By Kelly Clement ; [facility] Meloxicam 15 MG Oral Tablet 03/13/2024 - 05/12/2024 Pr ovider: Ronaldo Pereyra PA-C Diagnosis: Take 1 tablet by mouth once daily as needed Last Documented On 4 2:18PM By Uma Ann ; [facility] Cyclobenzaprine HCl 5 MG Ora l Tablet 03/13/2024 - 03/23/2024 Provider: Ronaldo Killian Diagnosis: one tablet by mouth three times a day Last Documented On 4 2:18PM By Uma Ann ; [facility], [facility] Medications Administered Includes: Administered Medications from this encounter No Administered Medications Recorded Vital Signs Includes: Vital Signs from this encounter Vital Name 03/18/2024 03:41P Height (in) 65 Weight (lb) 210 Body Mass Index 34.9 Body Surface Area 2 Pain Level 7 Note: lc Last Documented: On 03/18/2024 3:42PM ; [facility] Results Includes: Results discussed during this encounter No Results Recorded For Specified Dates History of Present Illness Includes: History of Present Illness from this encounter BISHNU Hernandez is a 43 year old female. 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 She was seen Saturday at our walk-in clinic and was recommended to do some physical therapy however patient states she had a similar injury earlier this year in his done physical therapy but continued to complain of back pain at that point in time had leg pain on the left side. She has always had this back pain that is just not going away it became worse again after the 2nd injury. She is says she has been trying to do these exercises on her own she does not want to go to anymore physical therapy at this point in time it bothers her when she is trying to do any bending lifting twisting pushing pulling. Rates her pain 02/25 Social History Description Last Updated Caffeine use 03/18/2024 Last Documented On 4 3:37PM ; [facility], [facility] No recent change in diet 03/18/2024 Last Documented On 4 3:37PM ; [facility], [facility] Not a current smoker. 03/18/2024 Last Documented On 4 3:37PM ; [facility] Not exercising regularly 03/18/2024 Last Documented On 4 3:37PM ; [facility] Not using alcohol 03/18/2024 Last Documented On 4 3:37PM ; [facility] Not using drugs 03/18/2024 Last Documented On 4 3:37PM ; [facility] Smoking Status Unknown Medical History Includes: Medical History addressed during this encounter No Medical History Recorded Family History Includes: Family History addressed during this encounter Description Last Updated Diabetes mellitus 03/18/2024 Last Documented On 4 3:37PM ; [facility] Family history of cancer 03/18/2024 Last Documented On 4 3:37PM ; [facility] Family history of heart disease 03/18/20 24 Last Documented On 4 3:37PM ; [facility] Family history of systemic hypertension 03/18/2024 Last Documented On 4 3:37PM ; [facility] Stroke / Seizures 03/18/2024 Last Documented On 4 3:37PM ; [facility] Review of Systems Includes: Review of Systems from this encounter Systemic: Not feeling tired, no recent weight loss, and no recent weight gain. Head: No headache and no sinus pain. Eyes: No vision problems and no Cataracts. Glasses/Contacts. No Glaucoma. Otolaryngeal: No hearing loss and no tinnitus. Cardiovascular: No chest pain or discomfort, no palpitations, no Hypertension, and no High Cholesterol. Pulmonary: No daytime asthma symptoms and no chronic cough. No wheezing. Gastrointestinal: No heartburn and no abdominal pain. No Indigestion, no Peptic Ulcer, no GI Stomach Bleed, no Ulcers, and no Acid Reflux. Endocrine: No hot flashes, no muscle weakness, no Diabetes, no Hypothyroid, and no Hyperthyroid. Hematologic: No easy bleeding, no tendency for easy bruising, and no Anemia. Musculoskeletal: No Arthritis and no lower back pain. No soft tissue swelling and no localized joint pain. Neurological: No dizziness, no convulsions, and no numbness. Psychological: No anxiety, no emotional lability, no depression, and no insomnia. Not crying for no reason. Skin: No dry skin. No Ulcers, no Scars, and no rash. Allergic and Immunologic: No complaint of seasonal allergic reaction. Mental Status Includes: Mental Status from this encounter Description No anxiety Functional Status Includes: Functional Status from this encounter No Functional Status Recorded Physical Exam Includes: Physical Exam from this encounter Allergies Includes: Active Allergies No Known Allergies Encounters Encounter Provider Location Date Check-In Time Check-Out Time Diagnosis Walk In In House Referral Javi Vital PA-C [facility] 03/18/20 24 3:34PM 3:58PM Overweight Insurance Includes: Active Insurance Policies Plan Name Member ID Group # Subscriber Relationship Effect gia Dates 1 - PMA [id number] Luz Marina Hickey 2023 - Unknown Clinical Notes Includes: Clinical Notes from this encounter * Progress note Date Encounter Last Documented by 03/18/2024 Walk In In House Referral Last d ocumented on 03/25/2024; 2:30 PM, Javi Vital PA-C; [facility], [facility] Active Problems & Conditions - Lower Back Pain Chief Complaint The Chief Complaint is: LOWER BACK PAIN & LEG PAIN. Low back and rt leg pain Referred Here Referred by Self. History of Present Illness - Luz Marina Hernandez is a 43 year old female. 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 She was seen Saturday at our walk-in clinic and was recommended to do some physical therapy however patient states she had a similar injury earlier this year in his done physical therapy but continued to complain of back pain at that point in time had leg pain on the left side. She has always had this back pain that is just not going away it became worse again after the 2nd injury. She is says she has been trying to do these exercises on her own she does not want to go to anymore physical therapy at this point in time it bothers her when she is trying to do any bending lifting twisting pushing pulling. Rates her pain 02/25 Current Medication - Atorvastatin Calcium 20 MG Oral Tablet 30 days, 0 refills - Fluticasone Propionate 50 MCG/ACT Nasal Suspension 60 days, 0 refills - Meloxicam 15 MG Oral Tablet Take 1 tablet by mouth once daily as needed, 30 days, 1 refills Social History Not a current smoker. Current diet: No recent change in diet. Caffeine use: Caffeine use. Alcohol: Not using alcohol. Drug Use: Not using drugs. Habits: Not exercising regularly. Allergies - No Known Allergies Family History Cancer Heart disease Stroke / Seizures Diabetes mellitus Systemic hypertension Review Of Systems Systemic: Not feeling tired, no recent weight loss, and no recent weight gain. Head: No headache and no sinus pain. Eyes: No vision problems and no Cataracts. Glasses/Contacts. No Glaucoma. Otolaryngeal: No hearing loss and no tinnitus. Cardiovascular: No chest pain or discomfort, no palpitations, no Hypertension, and no High Cholesterol. Pulmonary: No daytime asthma symptoms and no chronic cough. No wheezing. Gastrointestinal: No heartburn and no abdominal pain. No Indigestion, no Peptic Ulcer, no GI Stomach Bleed, no Ulcers, and no Acid Reflux. Endocrine: No hot flashes, no muscle weakness, no Diabetes, no Hypothyroid, and no Hyperthyroid. Hematologic: No easy bleeding, no tendency for easy bruising, and no Anemia. Musculoskeletal: No Arthritis and no lower back pain. No soft tissue swelling and no localized joint pain. Neurological: No dizziness, no convulsions, and no numbness. Psychological: No anxiety, no emotional lability, no depression, and no insomnia. Not crying for no reason. Skin: No dry skin. No Ulcers, no Scars, and no rash. Allergic and Immunologic: No complaint of seasonal allergic reaction. Physical Findings - Vitals taken 03/18/2024 03:41 pm lc Height 65 in Weight 210 lbs Body Mass Index 34.9 kg/m2 Body Surface Area 2 m2 Pain Level 7 She is pleasant alert and oriented x3 She has 5/5 EHL gastrocs quadriceps tibialis anterior strength bilaterally Some pain with a straight leg raise on the right negative on the left 1+ Achilles and patellar reflexes bilaterally Tests Her lumbar spine x-rays from Saturday were reviewed which show a subtle spondylolisthesis at L4-L5 03/18/2024 Assessment - Overweight L4-L5 spondylolisthesis and right L5 radiculopathy Counseling/Education - Tobacco non-user - Use of tobacco assessment performed - Lose weight Plan StartCited - Low back pain, unspecified Therapy/Physical Therapy: Lumbar Instructions: See PT order attached Radiology/MRI: MRI Lumbar Spine Instructions: MRI LSPINE EndCited Patient was seen by myself Javi Vital PA-C. Patient will follow up myself and Dr. Olguin after lumbar spine MRI. We will give her restrictions of seated work since he says anything that she is doing with bending or twisting or patient involvement has been waking this pain worse. Notes This dictation was done with voice recognition software and may contain errors and omissions. Care Team - Luz Marina Hernandez
--- OUTSIDE RECORDS SUMMARY | 2024-12-04 11:40 | XMS_ITS ---
Care Plan - [facility], [facility] Created on: December 04, 2024 Luz Marina Hernandez : 1980 Sex: Female Author Organization [facility], [facility] Address [address] [place] [address] Phone Care Team Providers Care Transition Manager Name Role Phone Ronaldo Pereyra PA-C Unavailable Luz Marina Hernandez Unavailable [phone]
--- OUTSIDE RECORDS SUMMARY | 2024-12-04 11:40 | XMS_ITS | Clinical Summary ---
Author Organization [facility] , [facility] Address [address] [place] [address] Phone Care Team Providers Care Elderly Sitter Name Role Phone Ronaldo Pereyra PA-C Unavailable Luz Marina Hernandez Unavailable [phone] Reason for Visit and Chief Complaint The Chief Complaint is: LOWER BACK PAIN & LEG PAIN Problems Includes: Problems addressed during this encounter and other active Problems Current Visit Onset Date Resolved Date Provider Aline appiah Status Lower Back Pain 03/13/2024 Ronaldo Pereyra PA-C Active Last Documented On 4 1:34PM ; [facility], [facility] Plan of Treatment Pending Tests Order Diagnosis Results Due Ordering P rovider Therapy - Physical Therapy Lumbar Low back pain, unspecified 04/09/24 Aamir Olguin MD Last Documented On 4 9:26AM ; [facility], [facility] Instructions to patient Lose weight Last Documented On 4 8:46AM ; [facility], [facility] Assessments Includes: Assessments from this encounter Findings - Overweight - Last Documented On 04/09/2024 9:42AM ; [facility], [facility] L4-L5 spondylolisthesis and right L5 radiculopathy - Last Documented On 04/09/2024 9:42AM ; [facility], [facility] Instructions Includes: Instructions from this encounter Instructions to patient Lose weight Last Documented On 4 8:46AM ; [facility], [facility] Medical Equipment - Implanted Devices Includes: Current Devices No Medical Equipment Recorded Medications Includes: Medications discussed during this encounter and other current Medications New / Renewed during this visit Aamir Olguin MD on 04/09/2024 Meloxicam 15 MG Oral Tablet Provider: Aamir Olguin MD 30 day supply: 30 tablet, 1 refills Diagnosis: Take one tablet my mouth once a day Pharmacy: [id number] [address] , [place], [address] - Last Documented On 4 9:38AM By Kelly Clement ; [facility] Current Medications (continue as prescribed) Atorvastatin Calcium 20 MG Oral Tablet 03/12/2024 Pr ovider: Diagnosis: Last Documented On 4 1:34PM By ROBYN Linda Fluticasone Propionate 50 MCG/ACT Nasal Suspension Provider: Diagnosis: Last Documented On 4 1:34PM By ROBYN Linda Past Medications on file Meloxicam 15 MG Oral Tablet 03/13/2024 - 05/12/2024 Pr ovider: Ronaldo Pereyra PA-C Diagnosis: Take 1 tablet by mouth once daily as needed Last Documented On 4 2:18PM By Uma Ann ; [facility] Cyclobenzaprine HCl 5 MG Ora l Tablet 03/13/2024 - 03/23/2024 Provider: Ronaldo Killian Diagnosis: one tablet by mouth three times a day Last Documented On 4 2:18PM By Uma Ann ; [facility], [facility] Medications Administered Includes: Administered Medications from this encounter No Administered Medications Recorded Vital Signs Includes: Vital Signs from this encounter Vital Name 04/09/2024 09:02A Height (in) 65 Weight (lb) 217.4 Body Mass Index 36.2 Body Surface Area 2 Pain Level 8 Note: Last Documented: On 04/09/2024 9:03AM ; [facility] Results Includes: Results discussed during this encounter No Results Recorded For Specified Dates History of Present Illness Includes: History of Present Illness from this encounter BISHNU Hernandez is a 43 year old female. - Allergy list reviewed - Problem list reviewed - Medication list reviewed - Previous history of new onset pain Work Injury - Patient pain level from 1-10: 8 - - Review of medications documented Social History Description Last Updated Caffeine use 03/18/2024 Last Documented On 4 8:46AM ; [facility] No recent change in diet 03/18/2024 Last Documented On 4 8:46AM ; [facility], [facility] Not a current smoker. 03/18/2024 Last Documented On 4 8:46AM ; [facility], [facility] Not exercising regularly 03/18/2024 Last Documented On 4 8:46AM ; [facility] Not using alcohol 03/18/2024 Last Documented On 4 8:46AM ; [facility], [facility] Not using drugs 03/18/2024 Last Documented On 4 8:46AM ; [facility] Smoking Status Unknown Medical History Includes: Medical History addressed during this encounter No Medical History Recorded Family History Includes: Family History addressed during this encounter Description Last Updated Diabetes mellitus 03/18/2024 Last Documented On 4 8:46AM ; [facility], [facility] Family history of cancer 03/18/2024 Last Documented On 4 8:46AM ; [facility], [facility] Family history of heart disease 03/18/20 24 Last Documented On 4 8:46AM ; [facility], [facility] Family history of systemic hypertension 03/18/2024 Last Documented On 4 8:46AM ; [facility], [facility] Stroke / Seizures 03/18/2024 Last Documented On 4 8:46AM ; [facility], [facility] Review of Systems Includes: Review of [...] Location Date Check-In Time Check-Out Time Diagnosis WC FOLLOW UP/EST Aamir Olguin MD [facility] 04/09/20 24 8:43AM 9:31AM Overweight Insurance Includes: Active Insurance Policies Plan Name Member ID Group # Subscriber Relationship Effect gia Dates 1 - PMA [id number] Luz Marina Strong Self 2023 - Unknown Clinical Notes Includes: Clinical Notes from this encounter No Clinical Notes Recorded
--- OUTSIDE RECORDS SUMMARY | 2024-12-04 11:40 | XMS_ITS ---
Author Organization [facility] , [facility] Address [address] [place] [address] Phone Care Team Providers Care Diploma Maker Name Role Phone Ronaldo Pereyra PA-C Unavailable [phone] Luz Marina Hernandez Unavailable [phone] Problems Includes: Active, inactive, and resolved Problems All Visits Onset Date Resolved Date Provider Condition S tatus Lower Back Pain 03/13/2024 Ronaldo Pereyra PA-C Active Last Documented On 4 1:34PM ; [facility], [facility] Plan of Treatment Pending Tests Order Diagnosis Results Due Ordering P rovider Therapy - Physical Therapy Lumbar Low back pain, unspecified 03/18/24 Javi Vital PA-C Last Documented On 4 2:30PM ; [facility], [facility] Radiology - MRI MRI Lumbar Spine Low back pain, unspecified 04/01/24 Javi Vital PA-C Last Documented On 4 2:30PM ; [facility], [facility] Instructions to patient Lose weight Last Documented On 4 8:46AM ; [facility], [facility] Lose weight Last Documented On 4 3:37PM ; [facility], [facility] Lose weight Last Documented On 4 1:34PM ; [facility], [facility] Assessments Includes: Assessments for all patient encounters Findings Encounter Date Overweight WC FOLLOW UP/EST with Aamir peraza MD 04/09/2024 Last Documented On 4 9:42AM ; [facility], [facility] Overweight Walk In In House Referral with Mauricio Vital PA-C 03/18/2024 Last Documented On 4 2:30PM ; [facility], [facility] Overweight Walk In New Patient with Ronaldo Pereyra PA-C 03/13/2024 Last Documented On 4 11:06AM ; [facility] Instructions Includes: Instructions for all patient encounters Instructions to patient Lose weight Last Documented On 4 8:46AM ; [facility] Lose weight Last Documented On 4 3:37PM ; [facility] Lose weight Last Documented On 4 1:34PM ; [facility] Medical Equipment - Implanted Devices Includes: Current and historical Devices No Medical Equipment Recorded Medications Includes: Current and historical Medications Current Medications (continue as prescribed) Atorvastatin Calcium 20 MG Oral Tablet 03/12/2024 Pr ovider: Diagnosis: Last Documented On 4 1:34PM By Matilda Alatorre ; [facility] Fluticasone Propionate 50 MCG/ACT Nasal Suspension Provider: Diagnosis: Last Documented On 4 1:34PM By Maitlda Branch [facility] Past Medications on file Meloxicam 15 MG Oral Tablet 04/09/2024 - 06/08/2024 Pr ovider: Aamir Olguin MD Diagnosis: Take one tablet my mouth once a day Last Documented On 4 9:38AM By Kelly Clement ; [facility] Meloxicam 15 MG Oral Tablet 03/13/2024 - 05/12/2024 Pr ovider: Ronaldo Pereyra PA-C Diagnosis: Take 1 tablet by mouth once daily as needed Last Documented On 4 2:18PM By Uma Ann ; [facility] Cyclobenzaprine HCl 5 MG Ora l Tablet 03/13/2024 - 03/23/2024 Provider: Ronaldo Killian Diagnosis: one tablet by mouth three times a day Last Documented On 4 2:18PM By Uma Ann ; [facility] Medications Administered Includes: Administered Medications in patient's chart No Administered Medications Recorded Vital Signs Includes: Vital Signs from 12/05/2023 through 12/04/2024 Vital Name 04/09/2024 09:02A 03/18/2024 03: 41P Height (in) 65 65 Weight (lb) 217.4 210 Body Mass Index 36.2 34.9 Body Surface Area 2 2 Pain Level 8 7 Note: lc lc Last Documented: On 04/09/2024 9:03AM ; [facility], [facility] On 03/18/2024 3:42PM ; [facility], [facility] Results Includes: Results from 12/05/2023 through 12/04/2024 No Results Recorded For Specified Dates History of Present Illness History of Present Illness not supported for this document type No History of Present Illness Recorded Social History Description Last Updated Caffeine use 03/18/2024 Last Documented On 4 11:06AM ; [facility], [facility] No recent change in diet 03/18/2024 Last Documented On 4 11:06AM ; [facility], [facility] Not a current smoker. 03/18/2024 Last Documented On 4 11:06AM ; [facility] Not exercising regularly 03/18/2024 Last Documented On 4 11:06AM ; [facility], [facility] Not using alcohol 03/18/2024 Last Documented On 4 11:06AM ; [facility], [facility] Not using drugs 03/18/2024 Last Documented On 4 11:06AM ; [facility], [facility] Smoking Status Unknown Procedures and Surgical History Includes: Procedures from 12/05/2023 through 12/04/2024 Procedures Code Diagnosis Performing Provider Service Location Service Date X-RAY EXAM OF LOWER SPINE 4-5 VIEWS 72327 Low back pain, unspecified Porfirio Keller MD [facility] 03/13/2024 Last Documented On 4 2:41PM ; [facility], [facility] Medical History Includes: Medical History in patient's chart No Medical History Recorded Family History Includes: Family History in patient's chart Description Last Updated Diabetes mellitus 03/18/2024 Last Documented On 4 11:06AM ; [facility], [facility] Family history of cancer 03/18/2024 Last Documented On 4 11:06AM ; [facility], [facility] Family history of heart disease 03/18/20 Last Documented On 4 11:06AM ; [facility] Family history of systemic hypertension 03/18/2024 Last Documented On 4 11:06AM ; [facility] Stroke / Seizures 03/18/2024 Last Documented On 4 11:06AM ; [facility] Review of Systems Review of Systems not supported for this document type No Review of Systems Recorded Mental Status Description No anxiety Functional Status No Functional Status Recorded Physical Exam Physical Exam not supported for this document type No Physical Exam Recorded Allergies Includes: Active, inactive, and resolved Allergies No Known Allergies Encounters Includes: Encounters from 12/05/2023 through 12/04/2024 Encounter Provider Location Date Check-In Time Check-Out Time Diagnosis WC FOLLOW UP/EST Aamir Olguin MD [facility] 04/09/20 24 8:43AM 9:31AM Overweight Walk In In House Referral Javi Vital PA-C [facility] 03/18/20 24 3:34PM 3:58PM Overweight Walk In [facility] Patient Ronaldo Pereyra PA-C [facility] 03/13/20 24 1:30PM 2:19PM Overweight Insurance Includes: Active Insurance Policies Plan Name Member ID Group # Subscriber Relationship Effect gia Dates 1 - PMA [id number] Luz Marina Hickey 2023 - Unknown Clinical Notes Includes: Signed Clinical Notes starting from 08/02/2022 * Progress note Date Encounter Last Documented by 03/18/2024 Walk In In House Referral Last d ocumented on 03/25/2024; 2:30 PM, Javi Vital PA-C; [facility] Active Problems & Conditions - Lower [...] 1-10: 7 - History of Physical Therapy [facility] 11-13-2023-finished end of January 2024 for this [...] omissions. Care Team - Luz Marina Hernandez * Progress note Date Encounter Last Documented by 03/13/2024 Walk In New Patient Manjit field paula on 03/18/2024; 11:06 AM, Ronaldo Pereyra PA-C; [facility], [facility] Active Problems & Conditions - Lower [...] - Previous history of new onset pain 03/13/2024 Work Injury - Sharp pain Symptoms - Pain is constant (100% of the time) - Pain is throbbing - Pain is dull, aching - Patient pain level from 1-10: 9 - No previous treatment. - - Review of medications documented 43-year-old female here for evaluation of her low back and right leg pain. It has a work-related injury. 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 Today around 11:00 a.m. she was helping transfer a patient when the patient started to go down to the floor she was assisting the patient is slowly down to the floor and felt a pain in her right side of the low back that travels down her right lateral thigh right lateral lower leg dorsal foot to the big toe. She also has some radiation into the left anterior thigh. No numbness tingling in the legs. Denies any weakness in the legs. Denies any saddle paresthesia or change in bowel and bladder control. Current Medication - Atorvastatin Calcium 20 MG Oral Tablet 30 days, 0 refills - Fluticasone Propionate 50 MCG/ACT Nasal Suspension 60 days, 0 refills Social History Not a current smoker. Current diet: No recent change in diet. Caffeine use: Caffeine use. Alcohol: Not using alcohol. Drug Use: Not using drugs. Habits: Not exercising regularly. Family History Cancer Heart disease Stroke / [...] allergic reaction. Physical Findings - Vitals taken 03/13/2024 01:41 pm [place] CONSTITUTIONAL: Well developed, well groomed, well nourished patient in no acute distress who appears stated age, height and weight. PSYCHIATRIC: The patient is alert and oriented to person, place, date and situation. Mood and affect are normal for current situation. NEUROLOGICAL: Sensation normal bilateral upper and lower extremities. LYMPHATIC: No pitting edema noted in the lower extremities. SKIN: No lesions noted on upper or lower extremities. Skin is dry and warm. VASCULAR: No swelling in upper or lower extremities other than described below in extremity exam. Radial pulses normal in both upper extremities. GAIT AND STATION: Normal gait without assistive devices. Station normal. LUMBAR: Normal Curvature. Mild Tenderness to right paraspinals palpation. ROM: Flexion oxdo-ho-rhcnqtjgyf limited due to pain. Extension ksam-wd-nejwcadirt limited due to pain. Bilateral lower extremity strength: Hip flexors 5/5, Knee extensors 5/5, Knee flexors 5/5. Plantar flexion 5/5. Dorsiflexion 5/5. Sensation LE intact to light touch. Positive seated straight leg raise on the right No clonus User Defined 5 Four view x-ray of the lumbar spine shows no acute bony abnormality. There is a very subtle L4-5 anterolisthesis. 43-year-old female with right lumbar radiculopathy that started as a work- related accident at today at 11:00 a.m. The patient is describing a right L5 radiculopathy. She has good strength of her EHL. Her sensation is intact over the lateral lower leg. She was not describing cauda equina syndrome. I do not feel that she needs a stat MRI at this time. Recommend trial of meloxicam, cyclobenzaprine to be taken as needed. Also make a referral to physical therapy for evaluation and treatment. I will have her follow-up with the spine team at their next available appointment. I will place her on light duty restrictions with no lifting pushing or pulling. Assessment - Overweight Counseling/Education - Tobacco non-user - Use of tobacco assessment performed - Lose weight Plan StartCited - Other Meloxicam 15 MG tablet Take 1 tablet by mouth once daily as needed, 30 days, 1 refills Cyclobenzaprine HCl 5 MG tablet one tablet by mouth three times a day, 10 days, 0 refills EndCited StartCited - Overweight Therapy/Physical Therapy: Lumbar Instructions: See PT order attached EndCited Notes This dictation was done with voice recognition software and may contain errors and omissions. Care Team - Luz Marina Hernandez
--- OUTSIDE RECORDS SUMMARY | 2024-12-04 11:40 | XMS_ITS | Clinical Summary ---
Author Organization [facility] , [facility] Address [address] [place] [address] Phone Care Team Providers Care Clinical Operations Manager Name Role Phone Ronaldo Pereyra PA-C Unavailable Luz Marina Hernandez Unavailable [phone] Reason for Visit and Chief Complaint The Chief Complaint is: LOWER BACK PAIN & LEG PAIN Problems Includes: Problems addressed during this encounter and other active Problems Current Visit Onset Date Resolved Date Provider Aline appiah Status Lower Back Pain 03/13/2024 Ronaldo Pereyra PA-C Active Last Documented On 4 1:34PM ; [facility], [facility] Plan of Treatment Pending Tests Order Diagnosis Results Due Ordering P rovider Therapy - Physical Therapy Lumbar Overweight 03/13/24 Ronaldo Pereyra PA-C Last Documented On 4 11:06AM ; [facility], [facility] Instructions to patient Lose weight Last Documented On 4 1:34PM ; [facility], [facility] Assessments Includes: Assessments from this encounter Findings - Overweight - Last Documented On 03/18/2024 11:06AM ; [facility], [facility] Instructions Includes: Instructions from this encounter Instructions to patient Lose weight Last Documented On 4 1:34PM ; [facility], [facility] Medical Equipment - Implanted Devices Includes: Current Devices No Medical Equipment Recorded Medications Includes: Medications discussed during this encounter and other current Medications New / Renewed during this visit Ronaldo Pereyra PA-C on 03/13/2024 Meloxicam 15 MG Oral Tablet Provider: Ronaldo Pereyra PA-C 30 day supply: 30 tablet, 1 refills Diagnosis: Take 1 tablet by mouth once daily as needed Pharmacy: [phone] [address] - Last Documented On 4 2:18PM By Uma Ann ; [facility], [facility] Cyclobenzaprine HCl 5 MG Ora l Tablet Provider: Ronaldo Pereyra PA-C 10 day supply: 30 tablet, 0 refills Diagnosis: one tablet by mouth three times a day Pharmacy: [facility] [phone] [facility] [place], [address] - Last Documented On 4 2:18PM By Uma Ann ; [facility], [facility] Current Medications (continue as prescribed) Atorvastatin Calcium 20 MG Oral Tablet 03/12/2024 Pr ovider: Diagnosis: Last Documented On 4 1:34PM By Matilda [facility], [facility] Fluticasone Propionate 50 MCG/ACT Nasal Suspension Provider: Diagnosis: Last Documented On 4 1:34PM By Matilda [facility], [facility] Past Medications on file Meloxicam 15 MG Oral Tablet 04/09/2024 - 06/08/2024 Pr ovider: Aamir Olguin MD Diagnosis: Take one tablet my mouth once a day Last Documented On 4 9:38AM By Kelly [facility], [facility] Medications Administered Includes: Administered Medications from this encounter No Administered Medications Recorded Results Includes: Results discussed during this encounter [...] a work-related injury. 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 Today around 11:00 a.m. she was helping [...] or change in bowel and bladder control. Social History Description Last Updated Caffeine use 03/18/2024 Last Documented On 4 11:06AM ; [facility], [facility] No recent change in diet 03/18/2024 Last Documented On 4 11:06AM ; [facility], [facility] Not a current smoker. 03/18/2024 Last Documented On 4 11:06AM ; [facility], [facility] Not exercising regularly 03/18/2024 Last Documented On 4 11:06AM ; [facility], [facility] Not using alcohol 03/18/2024 Last Documented On 4 11:06AM ; [facility] Not using drugs 03/18/2024 Last Documented On 4 11:06AM ; [facility], [facility] Smoking Status Unknown Procedures and Surgical History Includes: Procedures from this encounter Procedures Code Diagnosis Performing Provider Service Location Service Date X-RAY EXAM OF LOWER SPINE 4-5 VIEWS 27671 Low back pain, unspecified [facility] Last Documented On 4 2:41PM ; [facility], [facility] Medical History Includes: Medical History addressed during this encounter No Medical History Recorded Family History Includes: Family History addressed during this encounter Description Last Updated Diabetes mellitus 03/18/2024 Last Documented On 4 11:06AM ; [facility] Family history of cancer 03/18/2024 Last Documented On 4 11:06AM ; [facility], [facility] Family history of heart disease 03/18/20 Last Documented On 4 11:06AM ; [facility] Family history of systemic hypertension 03/18/2024 Last Documented On 4 11:06AM ; [facility] Stroke / Seizures 03/18/2024 Last Documented On 4 11:06AM ; [facility] Review of Systems Includes: Review of Systems [...] Check-In Time Check-Out Time Diagnosis Walk In New Patient Ronaldo Pereyra PA-C [facility] 03/13/20 24 1:30PM 2:19PM Overweight Insurance Includes: Active Insurance Policies Plan Name Member ID Group # Subscriber Relationship Effect gia Dates 1 - PMA [id number] Luz Marina Hernandez Self 2023 - Unknown Clinical Notes Includes: Clinical Notes from this encounter * Progress note Date Encounter Last Documented by 03/13/2024 Walk In New Patient Manjit rashida mitchell on 03/18/2024; 11:06 AM, Ronaldo Pereyra PA-C; [facility] Active Problems & Conditions - Lower Back [...] a work-related injury. 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 Today around 11:00 a.m. she was helping [...] Tenderness to right paraspinals palpation. ROM: Flexion zwfy-sv-dyvvpvzbrq limited due to pain. Extension idns-xn-ftxngermub limited due to pain. Bilateral lower extremity [...]
== END 2024-12-03 23:59 | disposition home or self-care (01) ==
LOC: LAB.DROPOF 12-04 11:39
PROVIDERS: PCP Family Medicine; Visit Provider Family Medicine
DX: R00.0 Tachycardia, unspecified (principal); E78.5 Hyperlipidemia, unspecified; E78.6 Lipoprotein deficiency; E66.9 Obesity, unspecified; Z68.36 Body mass index [BMI] 36.0-36.9, adult; Z86.79 Personal history of other diseases of the circulatory system
CPT/HCPCS: 80053; 80061; 84439; 84443

== ENCOUNTER 2024-12-08 19:14 | Outpatient (CLI) | payer BC, SELFPAY ==
--- OUTSIDE RECORDS SUMMARY | 2024-12-08 19:16 | XMS_ITS | Clinical Summary ---
Author Organization [facility] , [facility] Address [address] [place] [address] Phone Care Team Providers Care Blood Bank Business Manager Name Role Phone Ronaldo Pereyra PA-C Unavailable Luz Marina Hernandez Unavailable [phone] Reason for Visit and Chief Complaint The Chief Complaint is: LOWER BACK PAIN & LEG PAIN Problems Includes: Problems addressed during this encounter and other active Problems Current Visit Onset Date Resolved Date Provider Aline appiah Status Lower Back Pain 03/13/2024 Ronaldo Pereyra PA-C Active Last Documented On 4 1:34PM ; [facility], [facility] Plan of Treatment Pending Tests Order Diagnosis Results Due Ordering P rovider Therapy - Physical Therapy Lumbar Overweight 03/13/24 Ronaldo Pereyra PA-C Last Documented On 4 11:06AM ; [facility], [facility] Instructions to patient Lose weight Last Documented On 4 1:34PM ; [facility], [facility] Assessments Includes: Assessments from this encounter Findings - Overweight - Last Documented On 03/18/2024 11:06AM ; [facility], [facility] Instructions Includes: Instructions from this encounter Instructions to patient Lose weight Last Documented On 4 1:34PM ; [facility], [facility] Medical Equipment - Implanted Devices Includes: Current Devices No Medical Equipment Recorded Medications Includes: Medications discussed during this encounter and other current Medications New / Renewed during this visit Ronaldo Pereyra PA-C on 03/13/2024 Meloxicam 15 MG Oral Tablet Provider: Ronaldo Pereyra PA-C 30 day supply: 30 tablet, 1 refills Diagnosis: Take 1 tablet by mouth once daily as needed Pharmacy: [facility] [phone] [address] - Last Documented On 4 2:18PM By Uma Ann ; [facility], [facility] Cyclobenzaprine HCl 5 MG Ora l Tablet Provider: Ronaldo Pereyra PA-C 10 day supply: 30 tablet, 0 refills Diagnosis: one tablet by mouth three times a day Pharmacy: [facility] [phone] [facility] [place], [address] - Last Documented On 4 2:18PM By Uma Ann ; [facility], [facility] Current Medications (continue as prescribed) Atorvastatin Calcium 20 MG Oral Tablet 03/12/2024 Pr ovider: Diagnosis: Last Documented On 4 1:34PM By Matilda [facility], [facility] Fluticasone Propionate 50 MCG/ACT Nasal Suspension Provider: Diagnosis: Last Documented On 4 1:34PM By Matilda [facility], [facility] Past Medications on file Meloxicam 15 MG Oral Tablet 04/09/2024 - 06/08/2024 Pr ovider: Aamir Olguin MD Diagnosis: Take one tablet my mouth once a day Last Documented On 4 9:38AM By Kelly [facility], [facility] Medications Administered Includes: Administered Medications from [...] a work-related injury. 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 she was helping [...] 03/18/2024 Last Documented On 4 11:06AM ; [facility], [facility] No recent change in diet 03/18/2024 Last Documented On 4 11:06AM ; [facility], [facility] Not a current smoker. 03/18/2024 Last Documented On 4 11:06AM ; [facility], [facility] Not exercising regularly 03/18/2024 Last Documented On 4 11:06AM ; [facility], [facility] Not using alcohol 03/18/2024 Last Documented On 4 11:06AM ; [facility], [facility] Not using drugs 03/18/2024 Last Documented On 4 11:06AM ; [facility], [facility] Smoking Status Unknown Procedures and Surgical History Includes: Procedures from this encounter Procedures Code Diagnosis Performing Provider Service Location Service Date X-RAY EXAM OF LOWER SPINE 4-5 VIEWS 09389 Low back pain, unspecified Porfirio [facility] 03/13/2024 Last Documented On 4 2:41PM ; [facility], [facility] Medical History Includes: Medical History addressed during this encounter No Medical History Recorded Family History Includes: Family History addressed during this encounter Description Last Updated Diabetes mellitus 03/18/2024 Last Documented On 4 11:06AM ; [facility], [facility] Family history of cancer 03/18/2024 Last Documented On 4 11:06AM ; [facility], [facility] Family history of heart disease 03/18/20 Last Documented On 4 11:06AM ; [facility], [facility] Family history of systemic hypertension 03/18/2024 Last Documented On 4 11:06AM ; [facility], [facility] Stroke / Seizures 03/18/2024 Last Documented On 4 11:06AM ; [facility] Review of Systems Includes: Review [...] Walk In New Patient Ronaldo Pereyra PA-C [facility] 03/13/20 24 1:30PM 2:19PM Overweight Insurance Includes: Active Insurance Policies Plan Name Member ID Group # Subscriber Relationship Effect gia Dates 1 - PMA [id number] Luz Marina Hernandez Self 2023 - Unknown Clinical Notes Includes: Clinical Notes from this encounter * Progress note Date Encounter Last Documented by 03/13/2024 Walk In New Patient Manjit rashida mitchell on 03/18/2024; 11:06 AM, Ronaldo Pereyra PA-C; [facility] Active Problems [...] a work-related injury. 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 she was helping [...] Tenderness to right paraspinals palpation. ROM: Flexion sbhi-ra-qtocvtwday limited due to pain. Extension dbwz-fn-drzgekevzo limited due to pain. Bilateral lower extremity [...]
--- OUTSIDE RECORDS SUMMARY | 2024-12-08 19:16 | XMS_ITS | Clinical Summary ---
Author Organization [facility] , [facility] Address [address] [place] [address] Phone Care Team Providers Care Catering Attendant Name Role Phone Ronaldo Pereyra PA-C Unavailable Luz Marina Hernandez Unavailable [phone] Reason for Visit and Chief Complaint The Chief Complaint is: LOWER BACK PAIN & LEG PAIN Problems Includes: Problems addressed during this encounter and other active Problems Current Visit Onset Date Resolved Date Provider Aline appiah Status Lower Back Pain 03/13/2024 Ronaldo Pereyra PA-C Active Last Documented On 4 1:34PM ; [facility], [facility] Plan of Treatment Pending Tests Order Diagnosis Results Due Ordering P rovider Therapy - Physical Therapy Lumbar Low back pain, unspecified 04/09/24 Aamir Olguin MD Last Documented On 4 9:26AM ; [facility], [facility] Instructions to patient Lose weight Last Documented On 4 8:46AM ; [facility], [facility] Assessments Includes: Assessments from this encounter Findings - Overweight - Last Documented On 04/09/2024 9:42AM ; [facility], [facility] L4-L5 spondylolisthesis and right L5 radiculopathy - Last Documented On 04/09/2024 9:42AM ; [facility], [facility] Instructions Includes: Instructions from this encounter Instructions to patient Lose weight Last Documented On 4 8:46AM ; [facility], [facility] Medical Equipment - Implanted Devices Includes: Current Devices No Medical Equipment Recorded Medications Includes: Medications discussed during this encounter and other current Medications New / Renewed during this visit Aamir Olguin MD on 04/09/2024 Meloxicam 15 MG Oral Tablet Provider: Aamir Olguin MD 30 day supply: 30 tablet, 1 refills Diagnosis: Take one tablet my mouth once a day Pharmacy: [facility] [address] , [place], [address] - Last Documented On 4 9:38AM By Kelly Clement ; [facility] Current Medications (continue as prescribed) Atorvastatin Calcium [...] 2:18PM By Uma Ann ; [facility] Cyclobenzaprine HCl 5 MG Ora l Tablet 03/13/2024 - 03/23/2024 Provider: Ronaldo Killian Diagnosis: one tablet by mouth three times a day Last Documented On 4 2:18PM By Uma Ann ; [facility], [facility] Medications Administered Includes: Administered Medications from this encounter No Administered Medications Recorded Vital Signs Includes: Vital Signs from this encounter Vital Name 04/09/2024 09:02A Height (in) 65 Weight (lb) 217.4 Body Mass Index 36.2 Body Surface Area 2 Pain Level 8 Note: Last Documented: On 04/09/2024 9:03AM ; [facility] Results Includes: Results discussed during this encounter [...] Documented On 4 8:46AM ; [facility] No recent change in diet 03/18/2024 Last Documented On 4 8:46AM ; [facility], [facility] Not a current smoker. 03/18/2024 Last Documented On 4 8:46AM ; [facility], [facility] Not exercising regularly 03/18/2024 Last Documented On 4 8:46AM ; [facility] Not using alcohol 03/18/2024 Last Documented On 4 8:46AM ; [facility], [facility] Not using drugs 03/18/2024 Last Documented On 4 8:46AM ; [facility] Smoking Status Unknown Medical History Includes: Medical History addressed during this encounter No Medical History Recorded Family History Includes: Family History addressed during this encounter Description Last Updated Diabetes mellitus 03/18/2024 Last Documented On 4 8:46AM ; [facility], [facility] Family history of cancer 03/18/2024 Last Documented On 4 8:46AM ; [facility], [facility] Family history of heart disease 03/18/20 24 Last Documented On 4 8:46AM ; [facility], [facility] Family history of systemic hypertension 03/18/2024 Last Documented On 4 8:46AM ; [facility], [facility] Stroke / Seizures 03/18/2024 Last Documented On 4 8:46AM ; [facility], [facility] Review of Systems Includes: Review of [...] Diagnosis WC FOLLOW UP/EST Aamir Olguin MD [facility] 04/09/20 24 8:43AM 9:31AM Overweight Insurance Includes: Active Insurance Policies Plan Name Member ID Group # Subscriber Relationship Effect gia Dates 1 - PMA [id number] Luz Marina Strong Self 2023 - Unknown Clinical Notes Includes: Clinical Notes from this encounter No Clinical Notes Recorded
--- OUTSIDE RECORDS SUMMARY | 2024-12-08 19:16 | XMS_ITS ---
Author Organization [facility] Address [address] [place] [address] Phone Care Team Providers Care Forensic Artist Name Role Phone Ronaldo Pereyra PA-C Unavailable [phone] Luz Marina eHrnandez Unavailable [phone] Problems Includes: Active, inactive, and resolved Problems All Visits Onset Date Resolved Date Provider Condition S tatus Lower Back Pain 03/13/2024 Ronaldo Pereyra PA-C Active Last Documented On 4 1:34PM ; [facility], [facility] Plan of Treatment Pending Tests Order Diagnosis Results Due Ordering P rovider Therapy - Physical Therapy Lumbar Low back pain, unspecified 03/18/24 Javi Vital PA-C Last Documented On 4 2:30PM ; [facility], [facility] Radiology - MRI MRI Lumbar Spine Low back pain, unspecified 04/01/24 Javi Vital PA-C Last Documented On 4 2:30PM ; [facility], [facility] Instructions to patient Lose weight Last Documented On 4 8:46AM ; [facility], [facility] Lose weight Last Documented On 4 3:37PM ; [facility], [facility] Lose weight Last Documented On 4 1:34PM ; [facility], [facility] Assessments Includes: Assessments for all patient encounters Findings Encounter Date Overweight WC FOLLOW UP/EST with Aamir peraza MD 04/09/2024 Last Documented On 4 9:42AM ; [facility], [facility] Overweight Walk In In House Referral with Mauricio Vital PA-C 03/18/2024 Last Documented On 4 2:30PM ; [facility], [facility] Overweight Walk In New Patient with Ronaldo Pereyra PA-C 03/13/2024 Last Documented On 4 11:06AM ; [facility] Instructions Includes: Instructions for all patient encounters Instructions to patient Lose weight Last Documented On 4 8:46AM ; [facility] Lose weight Last Documented On 4 3:37PM ; [facility] Lose weight Last Documented On 4 1:34PM ; [facility] Medical Equipment - Implanted Devices Includes: Current and historical Devices No Medical Equipment Recorded Medications Includes: Current and historical Medications Current Medications (continue as prescribed) Atorvastatin Calcium 20 MG Oral Tablet 03/12/2024 Pr ovider: Diagnosis: Last Documented On 4 1:34PM By Matilda Alatorre ; [facility] Fluticasone Propionate 50 MCG/ACT Nasal Suspension Provider: Diagnosis: Last Documented On 4 1:34PM By Matilda Branch [facility] Past Medications on file Meloxicam 15 MG Oral Tablet 04/09/2024 - 06/08/2024 Pr ovider: Aamir Olguin MD Diagnosis: Take one tablet my mouth once a day Last Documented On 4 9:38AM By Kelly Clement ; [facility] Meloxicam 15 MG Oral Tablet 03/13/2024 - 05/12/2024 Pr ovider: Ronaldo Pereyra PA-C Diagnosis: Take 1 tablet by mouth once daily as needed Last Documented On 4 2:18PM By Uma Ann ; [facility] Cyclobenzaprine HCl 5 MG Ora l Tablet 03/13/2024 - 03/23/2024 Provider: Ronaldo Killian Diagnosis: one tablet by mouth three times a day Last Documented On 4 2:18PM By Uma Ann ; [facility] Medications Administered Includes: Administered Medications in patient's chart No Administered Medications Recorded Vital Signs Includes: Vital Signs from 12/09/2023 through 12/08/2024 Vital Name 04/09/2024 09:02A 03/18/2024 03: 41P Height (in) 65 65 Weight (lb) 217.4 210 Body Mass Index 36.2 34.9 Body Surface Area 2 2 Pain Level 8 7 Note: lc lc Last Documented: On 04/09/2024 9:03AM ; [facility], [facility] On 03/18/2024 3:42PM ; [facility], [facility] Results Includes: Results from 12/09/2023 through 12/08/2024 No Results Recorded For Specified Dates History of Present Illness History of Present Illness not supported for this document type No History of Present Illness Recorded Social History Description Last Updated Caffeine use 03/18/2024 Last Documented On 4 11:06AM ; [facility], [facility] No recent change in diet 03/18/2024 Last Documented On 4 11:06AM ; [facility], [facility] Not a current smoker. 03/18/2024 Last Documented On 4 11:06AM ; [facility], [facility] Not exercising regularly 03/18/2024 Last Documented On 4 11:06AM ; [facility], [facility] Not using alcohol 03/18/2024 Last Documented On 4 11:06AM ; [facility], [facility] Not using drugs 03/18/2024 Last Documented On 4 11:06AM ; [facility], [facility] Smoking Status Unknown Procedures and Surgical History Includes: Procedures from 12/09/2023 through 12/08/2024 Procedures Code Diagnosis Performing Provider Service Location Service Date X-RAY EXAM OF LOWER SPINE 4-5 VIEWS 89223 Low back pain, unspecified Porfirio Keller MD [facility] 03/13/2024 Last Documented On 4 2:41PM ; [facility], [facility] Medical History Includes: Medical History in patient's chart No Medical History Recorded Family History Includes: Family History in patient's chart Description Last Updated Diabetes mellitus 03/18/2024 Last Documented On 4 11:06AM ; [facility], [facility] Family history of cancer 03/18/2024 Last Documented On 4 11:06AM ; [facility], [facility] Family history of heart disease 03/18/20 Last Documented On 4 11:06AM ; [facility] Family history of systemic hypertension 03/18/2024 Last Documented On 4 11:06AM ; [facility] Stroke / Seizures 03/18/2024 Last Documented On 4 11:06AM ; [facility] Review of Systems Review of Systems not supported for this document type No Review of Systems Recorded Mental Status Description No anxiety Functional Status No Functional Status Recorded Physical Exam Physical Exam not supported for this document type No Physical Exam Recorded Allergies Includes: Active, inactive, and resolved Allergies No Known Allergies Encounters Includes: Encounters from 12/09/2023 through 12/08/2024 Encounter Provider Location Date Check-In Time Check-Out Time Diagnosis WC FOLLOW UP/EST Aamir Olguin MD [facility] 04/09/20 24 8:43AM 9:31AM Overweight Walk In In House Referral Javi Vital PA-C [facility] 03/18/20 24 3:34PM 3:58PM Overweight Walk In [facility] Patient Ronaldo Pereyra PA-C [facility] 03/13/20 24 1:30PM 2:19PM Overweight Insurance Includes: Active Insurance Policies Plan Name Member ID Group # Subscriber Relationship Effect gia Dates 1 - PMA [id number] Luz Marina Hickey 2023 - Unknown Clinical Notes Includes: Signed Clinical Notes starting from 08/02/2022 * Progress note Date Encounter Last Documented by 03/18/2024 Walk In In House Referral Last d ocumented on 03/25/2024; 2:30 PM, Javi Vital PA-C; [facility] Active Problems & Conditions - Lower [...] 1-10: 7 - History of Physical Therapy [facility] 11-13-2023-finished end of January 2024 for [...] on 03/18/2024; 11:06 AM, Ronaldo Pereyra PA-C; [facility], [facility] Active Problems & Conditions - [...] a work-related injury. She works as a [employer]. Today around 11:00 a.m. she was helping [...] Tenderness to right paraspinals palpation. ROM: Flexion zpss-vn-ybtyotugmq limited due to pain. Extension lswg-ux-sywtatuvng limited due to pain. Bilateral lower extremity [...]
--- OUTSIDE RECORDS SUMMARY | 2024-12-08 19:16 | XMS_ITS ---
Care Plan - [facility], [facility] Created on: December 08, 2024 Luz Marina Hernandez : 1980 Sex: Female Author Organization [facility], [facility] Address [address] [place] [address] Phone Care Team Providers Care Sales Representative Name Role Phone Ronaldo Pereyra PA-C Unavailable Luz Marina Hernandez Unavailable [phone]
--- OUTSIDE RECORDS SUMMARY | 2024-12-08 19:17 | XMS_ITS | Clinical Summary ---
Author Organization [facility] Address [address] [place] [address] Phone Care Team Providers Care Gifted Program Teacher Name Role Phone Ronaldo Pereyra PA-C Unavailable Luz Marina Hernandez Unavailable [phone] Reason for Visit and Chief Complaint The Chief Complaint is: LOWER BACK PAIN & LEG PAIN Problems Includes: Problems addressed during this encounter and other active Problems Current Visit Onset Date Resolved Date Provider Aline appiah Status Lower Back Pain 03/13/2024 Ronaldo Pereyra PA-C Active Last Documented On 4 1:34PM ; [facility] Plan of Treatment Patient was seen by myself Javi Vital PA-C. Patient will follow up myself and Dr. Olguin after lumbar spine MRI. We will give her restrictions of seated work since he says anything that she is doing with bending or twisting or patient involvement has been waking this pain worse. - Last Documented On 03/25/2024 2:30PM ; [facility] Pending Tests Order Diagnosis Results Due Ordering P rovider Therapy - Physical Therapy Lumbar Low back pain, unspecified 03/18/24 Javi Vital PA-C Last Documented On 4 2:30PM ; [facility] Radiology - MRI MRI Lumbar Spine Low back pain, unspecified 04/01/24 Javi Vital PA-C Last Documented On 4 2:30PM ; [facility] Instructions to patient Lose weight Last Documented On 4 3:37PM ; [facility] Assessments Includes: Assessments from this encounter Findings - Overweight - Last Documented On 03/25/2024 2:30PM ; [facility] L4-L5 spondylolisthesis and right L5 radiculopathy - Last Documented On 03/25/2024 2:30PM ; [facility] Instructions Includes: Instructions from this encounter Instructions to patient Lose weight Last Documented On 4 3:37PM ; [facility] Medical Equipment - Implanted Devices Includes: Current Devices No Medical Equipment Recorded Medications Includes: Medications discussed during this encounter and other current Medications Current Medications (continue as prescribed) Atorvastatin Calcium 20 MG Oral Tablet 03/12/2024 Pr ovider: Diagnosis: Last Documented On 4 1:34PM By Matilda Alatorre ; [facility] Fluticasone Propionate 50 MCG/ACT Nasal Suspension Provider: Diagnosis: Last Documented On 4 1:34PM By Matilda Alatorre ; [facility] Past Medications on file Meloxicam 15 MG Oral Tablet 04/09/2024 - 06/08/2024 Pr ovider: Aamir Olguin MD Diagnosis: Take one tablet my mouth once a day Last Documented On 4 9:38AM By Kelly Clement ; [facility] Meloxicam 15 MG Oral Tablet 03/13/2024 - 05/12/2024 Pr ovider: Ronaldo Pereyra PA-C Diagnosis: Take 1 tablet by mouth once daily as needed Last Documented On 4 2:18PM By Uma Ann ; [facility] Cyclobenzaprine HCl 5 MG Ora l Tablet 03/13/2024 - 03/23/2024 Provider: Ronaldo Killian Diagnosis: one tablet by mouth three times a day Last Documented On 4 2:18PM By Uma Ann ; [facility] Medications Administered Includes: Administered Medications from this encounter No Administered Medications Recorded Vital Signs Includes: Vital Signs from this encounter Vital Name 03/18/2024 03:41P Height (in) 65 Weight (lb) 210 Body Mass Index 34.9 Body Surface Area 2 Pain Level 7 Note: lc Last Documented: On 03/18/2024 3:42PM ; [facility] Results Includes: Results discussed during [...] 1-10: 7 - [facility]finished end of January 2024 for [...] Documented On 4 3:37PM ; [facility] No recent change in diet 03/18/2024 Last Documented On 4 3:37PM ; [facility] Not a current smoker. 03/18/2024 [...] 03/18/2024 Last Documented On 4 3:37PM ; [facility] Family history of cancer 03/18/2024 Last Documented On 4 3:37PM ; [facility] Family history of heart disease 03/18/20 24 Last Documented On 4 3:37PM ; [facility] Family history of systemic hypertension 03/18/2024 Last Documented On 4 3:37PM ; [facility] Stroke / Seizures 03/18/2024 Last Documented On 4 3:37PM ; [facility] Review of Systems Includes: Review [...] In In House Referral Javi Vital PA-C [facility] 03/18/20 24 3:34PM 3:58PM Overweight Insurance Includes: Active Insurance Policies Plan Name Member ID Group # Subscriber Relationship Effect gia Dates 1 - PMA [id number] Luz Marina Hickey 2023 - Unknown Clinical Notes Includes: Clinical Notes from this encounter * Progress note Date Encounter Last Documented by 03/18/2024 Walk In In House Referral Last d ocumented on 03/25/2024; 2:30 PM, Javi Vital PA-C; [facility] Active Problems & Conditions - Lower [...] 1-10: 7 - History of Physical Therapy [facility] 11-13-2023-finished end of January 2024 for [...]
[2024-12-08 19:45] LABS: Basophils # 0.1 K/mm3 (0-0.2); Basophils % 0.8 % (0.1-2.0); Eosinophils # 0.1 Kmm3 (0.0-0.4); Eosinophils % 1.4 % (0.1-12.0); Hematocrit 41.9 % (37.0-47.0); Hemoglobin 13.8 g/dL (12.2-16.2); Lymphocytes # 2.4 K/mm3 (0.7-4.5); Lymphocytes % 36.3 % (10-50); Mean Corpuscular HGB Conc 32.9 g/dL (31.8-35.4); Mean Corpuscular Hemoglobin 29.4 pg (27.0-31.2); Mean Corpuscular Volume 89.1 fl (81-99); Mean Platelet Volume 12.5 fl (7.4-10.4); Monocytes # 0.4 K/mm3 (0.1-1.0); Monocytes % 6.1 % (1.7-9.3); Neutrophils # 3.6 K/mm3 (1.8-7.8); Neutrophils % 55.1 % (37.0-80.0); Nucleated Red Blood Cells # 0 10^3/uL; Nucleated Red Blood Cells % 0 %; Platelet Count 294 K/mm3 (142-424); Red Cell Distribution Width 12.3 % (11.5-17.5); Red Cell Distribution Width-SD 40.3 fL; White Blood Count 6.5 K/mm3 (4.8-10.8)
== END 2024-12-08 23:59 | disposition home or self-care (01) ==
LOC: LAB 19:15
PROVIDERS: PCP Family Medicine; Visit Provider Family Medicine
DX: E78.5 Hyperlipidemia, unspecified (principal); R00.0 Tachycardia, unspecified
CPT/HCPCS: 85025

== ENCOUNTER 2025-01-27 06:53 | Outpatient (CLI) | payer BC, SELFPAY ==
--- NOTE | 2025-01-27 | CA_ITS ---
APPROVED REPORT Exam: Pharmacologic Technologist: Indy Reece Ht: 5 ft 4 in Wt: 224 lbs BSA: 2.05 m2 HR: 65 bpm BP: 128/80 mmHg Stress Test Details Test: Lexiscan HR Resting HR: 65 bpm Max Heart Rate (APMHR): 177.287140 bpm Max HR Achieved: 111 bpm Target HR (85% APMHR): 150.555512 bpm % of APMHR: 62.71 Recovery HR: 82 bpm BP Resting BP: 128.0/80.0 mmHg Max BP: 139.0/81.0 mmHg Recovery BP: 123.0/81.0 mmHg ECG Resting ECG: Normal sinus rhythm Stress ECG Conclusion Symptoms: Mild shortness of air, mild nausea, chest pain, from Lexiscan Arrhythmias/Ectopy: Lexiscan ST-T CHanges: None Electronically signed by : Radha Billings MD 01/27/2025 13:06:02
--- OUTSIDE RECORDS SUMMARY | 2025-01-27 06:56 | XMS_ITS | Clinical Summary ---
Author Organization [facility] Address [address] [facility], [place] [address] Phone Care Team Providers Care Car Trimmer Name Role Phone Unavailable Primary Care Provider Unavailabl e Allergies Active Allergy Reactions Criticality Noted Date Comments Codeine Shortness Of Breath 06/03/2015 Penicillins Oxycodone-Acetaminophen Shortness Of Breath Hydrocodone-Acetaminophen 09/01/2013 Medications No known medications Active Problems Problem Noted Date Diagnosed Date ASC- US pap 07/07/2008 Overview (08/17/2010): Normal pap on 10/20/2008 Immunizations Immunization Administration Dates Next Due DTaP 04/18/1986, 4,08/18/1982,1981,1981 IPV 06/18/1984, 2,1981,1980 Influenza Patient Reported 05/19/2012 Influenza Vaccine, Unspecifi ed Formulation 05/24/2014,06/19/2013 MMR 02/06/1992,09/04/1982 Rabies IM 12/18/2015,12/14/2015,12/11/2015 Td, Unspecified Formulation 03/16/1996 Surgical History Surgery Date Site/Laterality Comments HYSTERECTOMY 05/04/2015 partial TUBAL LIGATION LEEP ECTOPIC SURGERY Medical History Medical History Date Comments Gestational diabetes [place] (myocardial infarction) (HCC) 09/2015 Social History Tobacco Use Types Packs/Day Years Used Date Smoking Tobacco: Never Smokeless Tobacco: Never Alcohol Use Standard Drinks/Week Comments No 0 (1 standard drink = 0.6 oz pur e alcohol) Comments No Sex and Gender Information Value Date Recorded Sex Assigned at Not on file Legal Sex Female 2:28 PM EDT Gender Identity Not on file Sexual Orientation Not on file Obstetrics History Last Filed Vital Signs Vital Sign Reading Time Taken Comments Blood Pressure 135/87 03/08/2020 5:22 PM EDT Pulse 88 03/08/2020 7:15 PM EDT Temperature 37.2 C (98.9 F) 03/08/2020 5:22 PM EDT Respiratory Rate 20 03/08/2020 5:22 PM EDT Oxygen Saturation 100% 03/08/2020 8:26 PM EDT Inhaled Oxygen Concentration - - Weight 86.2 kg (190 lb) 03/08/2020 5:22 PM EDT Height 162.6 cm (5' 4 ) 02/19/2017 11:45 PM EDT Body Mass Index 32.61 02/19/2017 11:45 PM EDT Plan of Treatment Health Maintenance Due Date Last Done Comments Annual Wellness Exam 1984 Hepatitis B Vaccine (1 of 3 - 19+ 3-dose series) 2000 HPV/Pap Cotest 2011 Cervical Cancer Screening 08/01/2015 Pap Smear 08/01/2015 08/01/2012 Breast Cancer Screening 2021 COVID-19 Vaccine ( season) 2024 Influenza Vaccine (Season Ended) 2025 05/24/2014, 06/19/2013, 05/19/2012 DTaP/TDaP/Td (7 - Td or Tdap) 08/19/2025 08/19/2015, 03/16/1996, 04/18/1986, Additional history exists Meningococcal B Vaccine Aged Out No l onger eligible based on patient's age to complete this topic Pneumococcal Vaccine 0-49 Aged Out No longer eligible based on patient's age to complete this topic Procedures Procedure Name Priority Date/Time Associated Diagnosis Comments WORKDAY SENIOR ASSOCIATE CYTOLOGY REPORT Routine 08/01/2012 1 2:00 AM EST from Last 3 Months or Most Recently Relevant to Health Maintenance Results * WORKDAY SENIOR ASSOCIATE CYTOLOGY REPORT (08/01/2012 12:00 AM EST) Celery Wrapper Cytology Report PATIENT NAME:LUZ MARINA ROACH Celery Wrapper Cytology Report Accession Number Collected Date/Time Received Date/Time [id number] 08/01/12 00:00 EST 08/04/12 08:30 EST GY Specimen Source Specimen Vag/Cerv/Endocx?: Cerv/Endocerv Statement of Adequacy Satisfactory for Evaluation. Transformation Zone Present. 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 Comment This case was not successfully Imaged due to technical reasons and was manually rescreened. The Pap Smear is a screening test that aids in the detection of cervical cancer and cancer precursors. Both false positive and false negative results can occur. The test should be used at regular intervals, and positive results should be confirmed before definitive therapy. Processed using the CORD:USE Cord Blood BankPrep Entry Clerk automated cytology screening device (Post.Bid.Ship). Regulatory Internship: MR ERWIN 08/06/2012 Completed by: ANUPAMA MARTINES MD (Electronically signed by) 08/06/2012 [facility] Laboratory [facility] 08/01/2012 Alfredo Donovan MD PATHOLOGY ORDERABLES Final Result Performing Organization Address City/State/[facility] Co de Phone Number [facility] [address] [place] [address] from Last 3 Months or Most Recently Relevant to Health Maintenance Insurance O * Guarantor: LUZ MARINA ROACH Account Type Relation to Patient Date of Phone Billing Address [employer] Account [address] [place] [address]
--- OUTSIDE RECORDS SUMMARY | 2025-01-27 06:56 | XMS_ITS | Data Portability ---
Author Organization [facility] Address [address] [facility] [address] [place] [address] Care Team Providers Care Gang Miner Name Role Phone KRISTIN MARTIN Primary Care Provider Assessment No assessment recorded. Plan of Treatment Reminders Order Date Submit Date Provider Last Modified By Organization Details Last Modified Time Details Appointments None recorded. Lab None recorded. Referral None recorded. Procedures None recorded. Surgeries None recorded. Imaging None recorded. Medication Orders ipratropiu m bromide 42 mcg (0.06 %) nasal spray 2022 023 [email or web address] [facility], [address], [address], 11:28:06 Patient TargetsNo targets recorded. Patient Instructions Encounter Date Encounter Id Patient Instructions Last Modified By Organization Details Last Modified Time 11/13/2022 [id number] 1. Audiogram obtained in office today. Results discussed with patient. 2. Rx- Ipratropium bromide 42 mcg (0.06 %) nasal spray. Use as directed. 3. Follow up prn. [email or web address] Not available 11/13/2022 10:02:29 sudden onset of vertigo which sounds like vestibular neuronitis; assured this is an isolated event and can expect a full recovery; some rhinitis issues so will try prn atrovent; will contact us if more trouble [email or web address] Not available 11/13/2022 10:09:36 Reason for Referral None Reported. Results Created Date Observation Date Name Description Value Unit Range Abnormal Flag Note LastModifiedBy Organization Detail LastModifiedTime 11/14/19 23 11/13/2022 audio gram No observ ation record ed. BARCODE Not Available 2022 14:25:06 Result Notes None recorded. Problems No Known Problems Procedures Surgical History Date Name Laterality Status Provider Name and Address Organization Details Recorded Time 3 Tympanogram completed JOLANTA SAENZBOWEN, AUD [address] [place], [address], [facility] 11/13/2022 09:39:49 3 Audiogram completed JOLANTA SAENZBOWEN, AUD [address] [place], [address], [facility] 11/13/2022 09:39:48 5 hysterectomy completed Merced Vest [facility] 11/13/2022 09:14:10 Imaging Results None recorded. Procedure Notes None recorded. Medical Equipment None Reported. Allergies Allergen ID Allergen Name Allergen Category Reaction Reaction Severity Criticality Documentation Date Start Date Code Code System Note Provider Name and Address Organization Details Recorded Time 271242 Product containin g penicilli n (product) medicatio n Not available Not available Not available 11/13/2022 25658 8001 SNOMED Merced Kingt [facility] 3 09:13:39 222136 codeine medicatio n Not available Not available Not available 11/13/2022 2670 RxNorm Merced Kingt [facility] 3 09:13:45 034163 acetamino phen / hydrocodo ne medicatio n Not available Not available Not available 11/13/2022 38065 2 RxNorm Merced Vest [facility] 3 09:13:51 941546 acetamino phen / oxycodone medicatio n Not available Not available Not available 11/13/2022 64891 3 RxNorm Merced Vest [facility] 3 09:13:56 Medications Name Sig Start Date Stop Date Status Note LastModified by Organization Details LastModified Time ipratropium bromide 42 mcg (0.06 %) nasal spray [place] 2 sprays twice a day by intranasal route. 2022 active Not Available Not Available Not Avai lable Vitals Date Recorded Body weight Body temperature Body mass index (BMI) Body height Heart rate Systolic blood pressure Diastolic blood pressure Provider Name and Address Organization Details Last Updated DateTime 3 72295.6 3 g 97.8 [degF] 34.4 kg/m2 162.56 cm 81 /min 115 mm[Hg] 73 mm[Hg] Merced Holley [facility] 09:15:53 Social History None recorded. Functional Status Question Answer Note LastModified by Organization D etails LastModified Time What is your level of alcohol consumption? None [email or web address] Information not available 11/13/2022 Mental Status None recorded. Family History Relationship Description Onset Age of this Age Resolved Age Notes LastModified by Organization Details LastModified Time Mother Family history of malignant neoplasm [email or web address] Not available 2022 09:12:41 Mother Heart disease [email or web address] Not available 2022 09:12:54 Mother Hypertensive disorder [email or web address] Not available 2022 09:13:08 Mother Cerebrovascu lar accident [email or web address] Not available 09:13:12 Father Heart disease [email or web address] Not available 2022 09:12:54 Father Hypertensive disorder [email or web address] Not available 2022 09:13:08 Father Diabetes mellitus [email or web address] Not available 2022 09:13:18 Medical History Condition Response Depression Y Anxiety Disorder Y Cancer Y Bleeding Disorder N Anesthesia Complications N Heart Attack (IA) Y Diabetes N Hypertension N Gynecological HistoryNo gynecological history recorded. Obstetrics History GPAL:G 0 P 0 0 0 0 Past Encounters Encounter ID Performer Location Encounter Start Date Encounter Closed Date Diagnosis/Indication Diagnosis SNOMED-CT Code Diagnosis ICD10 Code Diagnosis Note [id number] MD [facility] [address] [place] [address] 11/13/2022 08:59:04 11/13/2022 10:04:20 Migraine 77838026 G43.909 - hx of Tympanosclerosis 7932610 1 H74.02 Vestibular neuronitis of left inner ear 4498966069 644085 H81.22 Ear pressu re sensation 808608964 H93.8X9 Nasal congestion 2976615 0 R09.81 Headache 48841617 R51.9 [id number] JOLANTA BALBUENA, AUD [place] [facility] [address] [place] [address] 11/13/2022 09:22:41 11/13/2022 09:40:42 Dizziness and giddiness 913165853 R42 Abnormal a uditory perception 21380270 H93.299 Bilateral earache 776387 003 H92.03 Health Concerns Section Related Observation LastModified by Organization Detai ls LastModified Time None Recorded Concern Status LastModified by Organization Details LastModified Time None Recorded Advance Directives Directive None Recorded Payers Insurance Date Sequence Insurance Name Policy Number Policy Peña Covered Member ID Peña Member ID Guarantor Name 11/14/2022 1 [place] [id number] Luz Marina Hernandez [id number] Luz Marina Hernandez Notes Date Note Type Note Provider Name and Address Organization Details Recorded Time 11/13/2022 text/html Luz Marina is a 42 ye ar old female who comes in today for consultation at the request of Dr. Kristin Martin for an evaluation of dizziness. Luz Marina states that two weeks ago she was sitting at the table and had a dizzy spell. She describes the dizziness as the room spinning and her not being able to focus. She went to her primary care doctor who referred her to an ENT. She does have a history of migraines and ear infections. She does not have any dizziness today but she is suffering from congestion and headaches. EMORY SANCHEZ MD [address] [place] [address], [id number], [facility] 11/13/2022 10:09:57 OBGyn Episode No OBEpisode recorded.
--- OUTSIDE RECORDS SUMMARY | 2025-01-27 06:56 | XMS_ITS | Clinical Summary ---
Author Organization [facility] Address [facility] [place] [address] Care Team Providers Care Casing Wringer Operator Name Role Phone Unavailable Primary Care Provider Unavailabl e Source Comments This information has been disclosed to you from confidential records protectedfrom disclosure by state law. You shall make no further disclosure of thisinformation without the specific, written, and informed release of theindividual to whom it pertains, or as otherwise permitted by law. A generalauthorization for the release of medical or other information is not sufficientfor the purposes of therelease of HIV test results or diagnoses. [id number] Allergies Active Allergy Reactions Criticality Noted Date Comments Codeine Other (See Comments) 12/14/2014 Causes hyperactivity. Had Morphine in March 2015 without rxn at [facility] Penicillins Hives,Rash Low High fever Oxycodone-Acetaminophe n Anaphylaxis High 12/28/2013 Acetaminophen-Codeine High 05/03/2015 Hyperactivity Hydrocodone-Acetaminop hen Anaphylaxis High 01/21/2013 Medications * This document contains information received from the source organization and may not represent a complete record from that organization. hydrOXYzine HCL (ATARAX) 25 MG tablet Take 1 tablet (25 mg total) by mouth every 6 hours as needed for Anxiety. 30 tablet 03/20/2020 Active escitalopram oxalate (LEXAPRO) 10 MG tablet Take 1 tablet by mouth once daily 90 tablet 1 05/26/2020 Active Active Problems Problem Noted Date Diagnosed Date Lumbar pain 08/24/2018 Lumbar radiculopathy - BL Glut 08/24/2018 DDD (degenerative disc disease), lumbar - L5/S1 08/24/2018 Intractable migraine with aura without status mi grainosus 10/25/2015 NSTEMI (non-ST elevated myocardial infarction) 0 10/05/2015 S/P laparoscopic hysterectomy 05/05/2015 Anxiety and depression 12/14/2014 Abnormal vaginal bleeding 01/15/2014 Assessment & Plan (01/15/2014 6:28 AM EDT): Cbc reassuring - will await sonogram. We discussed possible therapies based on sono findings. At this time, they would still like to get , so she is less likely interested in OCP's to control the bleeding. Will await sono report. But no evidnece of acute anemia at this time. Pt to contineu vits and Fe supplement. Encounter for routine gynecological examination 12/18/2013 Overview (05/19/2015): ICD-10 Transition Assessment & Plan (12/18/2013 5:09 AM EDT): Pap updated - self breast awareness d/w pt. Continue vits. She underwent tubal reversal and then had an ectopic pregnnancy over the holidays., no indication for OCP's. Continue vits. She should call with missed menses and do UPT> Pelvic pain 11/27/2013 Assessment & Plan (12/18/2013 5:08 AM EDT): sono ordered to evaluate this. Vaginal pain 11/27/2013 Assessment & Plan (12/18/2013 5:07 AM EDT): She reports vaginal spasm, but also describes urine sx. Will send urine culture today. We discussed possible IC? Ectopic 08/18/2013 Ectopic , tubal 08/17/2013 Weight gain 05/12/2013 Assessment & Plan (05/21/2013 4:03 AM EDT): Can be source of anovulation - recommend weight loss - will check TSH and get 2 hour glucola as pt had Gest DM. Desires - pt encouraged to see Dr. Vargas in followup from surgery. We also discussed use of OPK's that are available OTC. Pap smear to confirm normal after abnormal resul t 05/12/2013 Assessment & Plan (12/18/2013 5:07 AM EDT): Pap updated. She is s/p LEEP 09/19/2012 for VENANCIO II Assessment & Plan (05/21/2013 4:02 AM EDT): HPV cotesting ordered HSV (herpes simplex virus) infection 10/13/2012 Moderate dysplasia of cervix (VENANCIO II) 09/07/2012 Overview (09/19/2012): LEEP 09/19/2012 Assessment & Plan (11/04/2012 9:05 AM EDT): Doing well after procedure - RTC 6 months for follow up pap smear - also pt to have visit with Dr. Vargas with JASON Major depressive disorder, single episode 2011 Overview (05/19/2015): ICD-10 Transition Unspecified disorder of mens truation and other abnormal bleeding from female genital tract 08/06/2011 Adjustment disorder with depressed mood 06/18/20 11 Rosacea 01/16/2011 Other acne 03/23/2010 Disorder of skin or subcutaneous tissue 03/23/20 10 Overview (05/19/2015): ICD-10 Transition Other dyschromia 01/19/2010 Urinary tract infection, site not specified 09/2009 Nonspecific abnormal results of liver function s vidal 09/15/2009 Personal history of other ge nital system and obstetric disorders(V13.29) 08/14/2009 Disturbance of skin sensation 05/20/2009 Supervision of other high-risk 009 Overview (05/19/2015): ICD-10 Transition Migraine with aura 05/06/2009 Overview (05/19/2015): ICD-10 Transition Personal history of other specified diseases(V13 .89) 05/06/2009 Resolved Problems Problem Noted Date Diagnosed Date Resolved Date care and examinat ion of lactating mother 01/19/2010 08/18/2013 Oligohydramnios, antepartum 11/25/2009 01/19/2010 High-risk 11/25/2009 01/20/20 10 Overview (05/19/2015): ICD-10 Transition Other problem associated wit h amniotic cavity and membranes, unspecified as to episode of care 10/31/2009 01/19/2010 Abnormal maternal glucose to lerance, complicating , childbirth, or the puerperium, unspecified as to episode of care 10/28/2009 01/19/2010 Urinary-genital tract fistula, 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 11/08/2009 Edema or excessive weight gain, antepartum 08/26/2009 08/18/2013 Mild or unspecified pre-ecla mpsia, unspecified as to episode of care 05/06/20092012 Supervision of other normal 04/14/2009 08/18/2013 Immunizations Immunization Administration Dates Next Due tdap 08/19/2015 Family History Medical History Relation Comments Diabetes Father Hypertension Father Cervical Cancer Maternal Grandmother Cancer Mother uterine Hypertension Mother Other Mother atrial septal de fect Stroke Mother w/stroke, etiolo gy unknown Uterine Cancer Mother Cancer Paternal Grandmother cervical ca ncer Relation Status Comments Father Maternal Grandmother Mother Paternal Grandmother Social History Tobacco Use Types Packs/Day Years Used Date Smoking Tobacco: Never Smokeless Tobacco: Never Tobacco Cessation:Counseling Given: No Comments:04/14/2009 Alcohol Use Standard Drinks/Week Comments No 0 (1 standard drink = 0.6 oz pur e alcohol) PHQ-2 Answer Date Recorded PHQ-2 Total Score 3 03/21/2020 Comments No Sex and Gender Information Value Date Recorded Sex Assigned at Not on file Legal Sex Female 9:33 PM EST Gender Identity Not on file Sexual Orientation Not on file Last Filed Vital Signs Vital Sign Reading Time Taken Comments Blood Pressure 119/82 08/20/2018 9:53 AM EST Pulse 95 08/20/2018 9:53 AM EST Temperature 36.3 C (97.3 F) 03/08/2020 4:20 PM EDT Respiratory Rate 20 10/06/2015 7:38 AM EST Oxygen Saturation 98% 10/25/2015 10:01 AM EST Inhaled Oxygen Concentration 98% 10/25/2015 1 0:01 AM EST Weight 98.4 kg (217 lb) 08/20/2018 9:53 AM EST Height 162.6 cm (5' 4 ) 07/17/2017 12:59 PM EST Body Mass Index 37.25 07/17/2017 12:59 PM EST Plan of Treatment Not on file Insurance [employer] ACCESS Advance Directives For more information, please contact: [phone] * Full Code (Latest Code Status on File) Date Activated Date Inactivated Comments 10/05/2015 8:32 PM 10/06/2015 4:18 PM * Full Code Date Activated Date Inactivated Comments 05/04/2015 2:42 PM 05/05/2015 5:41 PM * Full Code Date Activated Date Inactivated Comments 08/17/2013 9:33 PM 08/18/2013 1:56 PM
--- NOTE | 2025-01-27 07:00 | NM_ITS ---
APPROVED REPORT Exam: Nuclear Stress Test Indication: Chest pain, Hx of HI, High cholesterol, Family history Patient Location: Outpatient Stress Tech: Indy Reece NM Tech:Dina Carrera, ARRT, RT (R)(N) Ht: 5 ft 4 in Wt: 220 lbs Bra Size: 38D HR: 69 bpm BP: 128/80 mmHg BSA: 2.04 m2 TID: 1.22 BMI: 37.7 History: Chest pain, Hx of HI, High cholesterol, Family history Procedure: Patient received 0.4 mg of intravenous Lexiscan, resting heart rate 69 bpm, resting blood pressure 128/80 mmHg, with Lexiscan maximum heart rate achieved was 117 bpm which is % of the maximum predicted heart rate and blood pressure was 139/81 mmHg. With Lexiscan, patient denied any complaint of chest pain. Cardiac Stress and Resting SPECT Images: Cardiac Stress and Resting SPECT images were obtained using technetium 99m Myoview 29.4 mCi stress and 10.27 mCi at rest. Resting and stress imaging in supine and prone positions demonstrate no evidence of fixed or reversible perfusion defects. There is increase in transient ischemic dilatation ratio (TID 1.22), suggestive of possible multivessel disease or balanced ischemia. Gated imaging demonstrates normal global and regional LV systolic function. LVEF is calculated at 55%. Conclusion: No evidence of fixed or reversible perfusion defects. There is increase in transient ischemic dilatation ratio (TID 1.22), suggestive of possible multivessel disease or balanced ischemia. Gated imaging demonstrates normal global and regional LV systolic function. LVEF is calculated at 55%. In the setting of young age, normal LVEF, and presence of TID, further evaluation noninvasively with CCTA may be suggested prior to proceeding with invasive coronary angiography to rule out multivessel disease. Electronically signed by : Radha Billings MD 01/27/2025 13:02:52
[2025-01-27] MEDS: REGADENOSON 0.4MG/5ML SYRINGE 0.4 MG IV (09:08)
[2025-01-27] MEDS: ISOTOPE MYOVIEW (PER STUDY) 1 DOSE IV (09:08)
[2025-01-27] MEDS: SODIUM CHLORIDE 0.9% 10ML SYR (RAD ONLY) 10 ML IV ×2 (09:08)
== END 2025-01-27 23:59 | disposition home or self-care (01) ==
LOC: RAD 06:54
PROVIDERS: PCP Family Medicine; Visit Provider Family Medicine
DX: I20.9 Angina pectoris, unspecified (principal); R07.9 Chest pain, unspecified; Z82.49 Family history of ischemic heart disease and other diseases of the circulatory system; E78.00 Pure hypercholesterolemia, unspecified; I25.2 Old myocardial infarction; R06.02 Shortness of breath; R11.0 Nausea
CPT/HCPCS: 78452; 93017; 93018; A9502; J2785

== ENCOUNTER 2025-02-17 07:49 | Outpatient (CLI) | payer BC, SELFPAY ==
--- OUTSIDE RECORDS SUMMARY | 2025-02-17 07:55 | XMS_ITS | Data Portability ---
Author Organization [facility] Address [address] [place] [address] Care Team Providers Care Robotics Software Engineer Name Role Phone KRISTIN MARTIN Primary Care Provider Assessment No assessment recorded. Plan of Treatment Reminders Order Date Submit Date Provider Last Modified By Organization Details Last Modified Time Details Appointments None recorded. Lab None recorded. Referral None recorded. Procedures None recorded. Surgeries None recorded. Imaging None recorded. Medication Orders ipratropiu m bromide 42 mcg (0.06 %) nasal spray 2022 023 rvanmetre [facility], [address], [address], 11:28:06 Patient TargetsNo targets recorded. Patient Instructions Encounter Date Encounter Id Patient Instructions Last Modified By Organization Details Last Modified Time 11/13/2022 [id number] 1. Audiogram obtained in office today. Results [...] 3 Tympanogram completed JOLANTA SAENZBOWEN, AUD [address] [place], [address], [facility] 11/13/2022 09:39:49 3 Audiogram completed JOLANTA LETTY-BOWEN, AUD [address] [place], [address], [facility] 11/13/2022 09:39:48 5 hysterectomy completed Merced Vest [facility] 11/13/2022 09:14:10 Imaging Results None recorded. Procedure Notes None recorded. Medical Equipment None Reported. Allergies Allergen ID Allergen Name Allergen Category Reaction Reaction Severity Criticality Documentation Date Start Date Code Code System Note Provider Name and Address Organization Details Recorded Time 518082 Product containin g penicilli n (product) medicatio n Not available Not available Not available 11/13/2022 28794 8001 SNOMED Merced Vest [facility] 3 09:13:39 181975 codeine medicatio n Not available Not available Not available 11/13/2022 2670 RxNorm [facility]ced Vest [facility] 3 09:13:45 007456 acetamino phen / hydrocodo ne medicatio n Not available Not available Not available 11/13/2022 12331 2 RxNorm Merced Vest [facility] 3 09:13:51 219449 acetamino phen / oxycodone medicatio n Not available Not available Not available 11/13/2022 82703 3 RxNorm Mer[facility] 3 09:13:56 Medications Name Sig Start Date Stop Date Status Note LastModified by Organization Details LastModified Time ipratropium bromide 42 mcg (0.06 %) nasal spray [place] 2 sprays twice a day by intranasal route. 2022 active Not Available Not Available Not Avai lable Vitals Date Recorded Body weight Body temperature Body mass index (BMI) Body height Heart rate Systolic blood pressure Diastolic blood pressure Provider Name and Address Organization Details Last Updated DateTime 3 40238.6 3 g 97.8 [degF] 34.4 kg/m2 162.56 cm 81 /min 115 mm[Hg] 73 mm[Hg] Merced Holley [facility] 09:15:53 Social History None recorded. Functional Status [...] available 2022 09:13:18 Medical History Condition Response Anesthesia Complications N Diabetes N Anxiety Disorder Y Heart Attack ([place]) Y Bleeding Disorder N Cancer Y Hypertension N Depression Y Gynecological HistoryNo gynecological history recorded. Obstetrics History GPAL:G 0 P 0 0 0 0 Past Encounters Encounter ID Performer Location Encounter Start Date Encounter Closed Date Diagnosis/Indication Diagnosis SNOMED-CT Code Diagnosis ICD10 Code Diagnosis Note [id number] MD [facility] SANTILL[facility] [address] [place] [address] 11/13/2022 08:59:04 11/13/2022 10:04:20 Migraine 89546456 G43.909 - hx of Tympanosclerosis 6647329 1 H74.02 Vestibular neuronitis of left inner ear 7646816108 706986 H81.22 Ear pressu re sensation 208645013 H93.8X9 Nasal congestion 7850266 0 R09.81 Headache 76821072 R51.9 [id number] JOLANTA SAENZEstelaRANDY NG, ALEJANDRA [place] [facility] [address] [place] [address] 11/13/2022 09:22:41 11/13/2022 09:40:42 Dizziness and giddiness 154737128 R42 Abnormal a uditory perception 62540374 H93.299 Bilateral earache 592912 003 H92.03 Health Concerns Section Related Observation LastModified by Organization Detai ls LastModified Time None Recorded Concern Status LastModified by Organization Details LastModified Time None Recorded Advance Directives Directive None Recorded Payers Insurance Date Sequence Insurance Name Policy Number Policy Peña Covered Member ID Peña Member ID Guarantor Name 11/14/2022 1 [place] [id number] Luz Marina Hernandez [id number] Luz Marina Hernandez Notes Date Note [...] from congestion and headaches. EMORY SANCHEZ MD [facility] [place], [address], [facility] 11/13/2022 10:09:57 OBGyn Episode No OBEpisode recorded.
--- OUTSIDE RECORDS SUMMARY | 2025-02-17 07:55 | XMS_ITS | Clinical Summary ---
Author Organization [facility] Address [facility] [place] [address] Care Team Providers Care Screen Printing Inspector Name Role Phone Unavailable Primary Care Provider [...] therelease of HIV test results or diagnoses. [id number] Allergies Active Allergy Reactions Criticality Noted Date Comments Codeine Other (See Comments) 12/14/2014 Causes hyperactivity. Had Morphine in March 2015 without rxn at [facility] Penicillins Hives,Rash Low High fever Oxycodone-Acetaminophe n [...] Plan of Treatment Not on file Insurance [employer] ACCESS Advance Directives For more information, please contact: [phone] * Full Code (Latest Code Status on File) Date Activated Date Inactivated Comments 10/05/2015 8:32 PM 10/06/2015 4:18 PM * Full Code Date Activated Date Inactivated Comments 05/04/2015 2:42 PM 05/05/2015 5:41 PM * Full Code Date Activated Date Inactivated Comments 08/17/2013 9:33 PM 08/18/2013 1:56 PM
--- OUTSIDE RECORDS SUMMARY | 2025-02-17 07:55 | XMS_ITS | Clinical Summary ---
Author Organization [facility] Address [address] [facility], [place] [address] Phone Care Team Providers Care Superintendent Operating Name Role Phone Unavailable Primary Care Provider [...] History Medical History Date Comments Gestational diabetes CT (myocardial infarction) (HCC) 09/2015 Social History Tobacco [...] COVID-19 Vaccine ( season) 2024 Influenza Vaccine (#1) 2025 4, 06/19/2013, 05/19/2012 DTaP/TDaP/Td (7 - Td or Tdap) 08/19/2025 08/19/2015, 03/16/1996, 04/18/1986, Additional history exists Meningococcal B Vaccine Aged Out No l onger eligible based on patient's age to complete this topic Pneumococcal Vaccine 0-49 Aged Out No longer eligible based on patient's age to complete this topic Procedures Procedure Name Priority Date/Time Associated Diagnosis Comments PIPE BENDER CYTOLOGY REPORT Routine 08/01/2012 1 2:00 AM EST from Last 3 Months or Most Recently Relevant to Health Maintenance Results * PIPE BENDER CYTOLOGY REPORT (08/01/2012 12:00 AM EST) Heater Mechanic Cytology Report PATIENT NAME:LUZ MARINA ROACH Heater Mechanic Cytology Report Accession Number Collected Date/Time Received Date/Time [id number] 08/01/12 00:00 EST 08/04/12 08:30 EST GY [...] confirmed before definitive therapy. Processed using the OppexPrep Bricklayer [place] automated cytology screening device ([employer]). Port Surveyor: MR ERWIN 08/06/2012 Completed by: ANUPAMA MARTINES MD (Electronically signed by) 08/06/2012 [facility] 08/01/2012 Alfredo Donovan MD PATHOLOGY ORDERABLES Final Result Performing Organization Address City/State/RUST Co de Phone Number [facility] [address] [place] [address] from Last 3 Months or Most Recently Relevant to Health Maintenance Insurance O * Guarantor: LUZ MARINA ROACH Account Type Relation to Patient Date of Phone Billing Address [employer] Personal Family Account [address] [place] [address]
--- NOTE | 2025-02-17 08:00 | CA_ITS ---
APPROVED REPORT EXAM: Comprehensive 2D, Doppler, and color-flow Echocardiogram Switchboard Mechanic: NINO Davey, RVS Ht: 5 ft 4 in Wt: 224lbs BSA: 2.05 BP: 120/90 mmHg Indications: CP, Tachycardia 2D Dimensions Left Atrium 3.48 cm LA Volume 31.90 mL LA Volume Index 15.20 mL/m2 (M/F) 16-34 M-Mode Dimensions RVDd 2.13 cm (0.9-2.6) LA Diam 3.81 cm (1.9-4.0) LVDd 4.86 cm (3.5-5.7) LVDs 3.31 cm (3.5-5.7) IVSd 0.91 cm (0.6-1.1) PWd 0.99 cm (0.6-1.1) EF (Teich) 59.80% EPSs 0.38 cm FS 31.90% EDV (Teich) 110.70 mL TAPSE 2.06 (<1.7) ESV (Teich) 44.50 mL LV Diastology E Decel Time 173 (160-240 msec) E/A Ratio 0.84 MED A' 10.80 cm/s LAT A' 10.00 cm/s Aortic Valve ASTON Index 1.50 cm2/m2 AoV Peak Mat. 105.0 (50-130 cm/s) AO Peak GR. 4.40 mmHg AO Mean GR. 2.20 (<5 mmHg) AO VTI 19.9 (18-25 cm) ASTON (VTI) 3.15 (2.5-4.5 cm2) Mitral Valve MV A Velocity 66.0 (40-130 cm/s) E/A Ratio 0.84 Tricuspid Valve TR P. Velocity 209.00 cm/s RAP Estimate 10.00 mmHg RVSP 27.40 mmHg Left Ventricle The left ventricle is normal size. The left ventricular systolic function is normal. The left ventricular ejection fraction is within the normal range. Proximal septal thickening is present. There is normal LV segmental wall motion. The left ventricular diastolic function is normal. LVEF is 55%. Right Ventricle The right ventricle is normal size. The right ventricular systolic function is normal. Atria The left atrium size is normal. The right atrium size is normal. There is no Doppler evidence of interatrial shunt. Aortic Valve The aortic valve opens well. There is no aortic valvular stenosis. No aortic regurgitation is present. Mitral Valve The mitral valve is normal in structure. No evidence of mitral valve stenosis. There is no mitral valve regurgitation noted. Tricuspid Valve Tricuspid valve is grossly normal in structure and function. Trace tricuspid regurgitation. There is insufficient TR jet to estimate RVSP. Pulmonic Valve The pulmonary valve is normal in structure. Trace pulmonic regurgitation. Great Vessels The aortic root is normal in size. IVC is normal in size and collapses >50% with inspiration. Pericardium There is no pericardial effusion. Other Information Study Quality: Fair Conclusion Normal biventricular systolic function. No significant valvular stenosis or regurgitation. Electronically signed by : Radha Billings MD 02/18/2025 12:55:29
[2025-02-17 09:04] VITALS: BP 131/81; PULSE 74; RESP 17; O2SAT 100; BMI 37.4
[2025-02-17 09:38] LABS: Anion Gap 8.0 mEq/L (5-15); Blood Urea Nitrogen 12 mg/dl (7-17); Calcium 9.2 mg/dl (8.4-10.2); Carbon Dioxide 31 mmol/L (22.0-30.0); Chloride 97 mmol/L (98-107); Creatinine Clearance Estimated 189 mL/min (50-200); Creatinine,Serum 0.60 mg/dl (0.52-1.04); Estimated Glomerular Filt Rate 109 ml/min (>60); GFR (African American) 132 ML/MIN (>60); Glucose 116 mg/dl (74-100); Potassium 4.0 mmoL/L (3.5-5.1); Sodium 132 mmol/L (136-145)
[2025-02-17] MEDS: METOPROLOL TARTRATE 50MG TABLET PO (09:49)
[2025-02-17] MEDS: IVABRADINE HCL 7.5MG TABLET PO (09:49)
[2025-02-17 09:50] VITALS: BP 116/80; PULSE 75; RESP 17; O2SAT 97
--- NOTE | 2025-02-17 10:00 | CT_ITS ---
APPROVED REPORT Golf Ball Trimmer: CLINICAL INDICATION Chest Pain TECHNIQUE Image Acquisition: A 128 slice MDCT scanner ([place]) was used for data acquisition. A noncontrast coronary calcium scan was performed. A CT attenuation threshold of 130 Hounsfield units (HU) was used for the detection of calcium in contiguous voxels of 1 sq mm in area to be counted as individual lesions. Bolus tracking in the ascending aorta with a threshold of 180 HU was performed. Immediately afterwards, ECG synchronized cardiac CT was then performed from the cardiac base to apex using retrospective gating with ECG tube current modulation. A total of 85 mL of Isovue 370 mg/mL contrast medium was administered at 5 mL/sec followed by a saline flush using a biphasic injection protocol. A tube voltage of 120 KVp was used. The patient received the following medications prior to the cardiac CT. 75 mg of oral metoprolol 15 mg of oral ivabradine 0.8 mg of sublingual nitroglycerin The average heart rate at the time of acquisition was 60 bpm and regular. Image Reconstruction Transaxial images were reconstructed at 0.67 mm slide thickness. Data was reviewed interactively on an advanced workstation capable of 2 and 3-dimensional displays in all conventional reconstruction formats, including multiplanar reformations, maximum intensity projections, curved multiplanar reformations, and volume rendered reconstructions. When applicable, selected routine images describing the relevant coronary anatomy and pathology were saved and sent to PACS. Complications None Technical Quality Overall image quality was good. Coronary artery opacification was adequate. Total DLP (Dose-Length Product) is 958.4 mGy-cm. The reported value represents the total of one or more individual components during the CT acquisition of this date and at this time, and as such, the same value may appear in more than one CT report depending on the interpreting/reporting physicians. COMPARISON None FINDINGS CT Coronary Calcium Scoring LMA (Left Main Artery) = 0 LAD (Left Anterior Descending) = 0 LCX (Left Coronary Circumflex) = 0 RCA (Right Coronary Artery) = 0 Total Calcium Score = 0 using the AJ-130 method. The interpretation of the calcium heart score is based on the following continuum*: 0 = no calcified plaque detected (risk of coronary artery disease is very low ??? less than 5%) 1-10 = calcium detected in extremely minimal levels (risk of coronary diseases is still low ??? less than 10%) 11-100 = mild levels of plaque detected with certainty (mild or minimal narrowing of heart arteries is likely) 101-400 = definite,at least moderate levels of plaque detected (relatively high risk of a heart attack within 3-5 years) >401-999 = extensive levels of plaque detected (high risk of heart attack, high levels of vascular disease are present, high likelihood of at least one significant coronary narrowing) *The calcium heart score quantifies the burden of coronary calcification/plaque in the coronary arteries. The calcium heart score is not able to evaluate the presence or burden of non-calcified (i.e. soft) plaque. There is no identifiable calcification in the aortic valve, mitral annulus or mitral valve, pericardium, or myocardium. Coronary CT Angiography The coronary arterial system is right dominant. Quantitative Stenosis Grading: Left Main (LM): The left main originates normally from the left sinus of Valsalva. The LM bifurcates into the left anterior descending artery and left circumflex artery. The LM is patent with no evidence of atherosclerosis. Left Anterior Descending (LAD) and Diagonal Branches: The LAD gives off 3 diagonal branch(es). The LAD and its branches are patent with no evidence of atherosclerosis. There is no evidence of LAD-myocardial bridge. Left Circumflex (LCX) and Obtuse Marginals (OM): The LCX gives off 1 Obtuse Marginal (OM) branch(es). The LCX and its branches are patent with no evidence of atherosclerosis. Right Coronary Artery (RCA): The RCA originates normally from the right sinus of Valsalva. The RCA gives off a posterior descending artery (PDA) and posterolateral (PL) branches. The RCA and its branches are patent with no evidence of atherosclerosis. Non-Coronary Cardiac Findings: Analysis of the left ventricular (LV) structure and function was performed after 3-D reconstruction of the LV from axial images, with user-corrected automatic contouring for assessment of LV volumes and user-defined reconstruction from oblique planes for measurement of 3-D cardiac structure and function. -The left ventricle systolic function is normal. -There is no left atrial appendage filling defect. Two right pulmonary veins and two left pulmonary veins drain normally into the left atrium. -No pericardial thickening or calcification. -Central and branch pulmonary arteries in the hwfrw-aw-ryma are unremarkable. -Thoracic aorta within the visualized thoracic aortic-branches in the [id number]-jt-nudr is unremarkable. Extracardiac Structures No significant extra-cardiac findings. Note, however, that this study is focused on the cardiac findings. IMPRESSION -Absence of coronary calcification with an Agatston score = 0 using the AJ-130 method. -No evidence of significant flow-limiting atherosclerosis of the coronary arteries. -No evidence of coronary anomalies or myocardial bridges. -CAD-RADS 0. Management recommendations per ACC/AHA guidelines*, as clinically appropriate. *Recommendations: CAD RADS 0: Reassurance. Consider non-atherosclerotic causes of chest pain. CAD RADS 1: Consider non-atherosclerotic causes of chest pain. Consider preventive therapy and risk factor modification. CAD RADS 2: Consider non-atherosclerotic causes of chest pain. Consider preventive therapy and risk factor modification, particularly for patients with nonobstructive plaque in multiple segments. CAD RADS 3: Consider further functional testing. Consider symptom-guided anti-ischemic and preventive pharmacotherapy as well as risk factor modification per published guideline statements. CAD RADS 4A: Consider further functional testing or invasive coronary angiography with revascularization per published guideline statements. Consider symptom-guided anti-ischemic and preventive pharmacotherapy as well as risk factor modification per published guideline statements. CAD RADS 4B: Invasive coronary angiography recommended with revascularization per published guideline statements. Consider symptom-guided anti-ischemic and preventive pharmacotherapy as well as risk factor modification per published guideline statements. CAD RADS 5: Consider invasive angiography and/or viability assessment with revascularization per published guideline statements. Consider symptom-guided anti-ischemic and preventive pharmacotherapy as well as risk factor modification per published guideline statements. CRITICAL RESULT None COMMUNICATION Per this written report The coronary and cardiac findings of this CCTA were reviewed, reported, and signed by Henry Billings MD (Cow Washer) Conclusion Electronically signed by : Radha Billings MD 02/17/2025 13:08:24
[2025-02-17 10:59] VITALS: BP 131/88; PULSE 60; RESP 17; O2SAT 98
[2025-02-17 11:00] VITALS: BP 140/96; PULSE 60; RESP 17; O2SAT 97
[2025-02-17 11:06] VITALS: BP 112/63; PULSE 71; RESP 18; O2SAT 97
[2025-02-17] MEDS: SODIUM CHLORIDE 0.9% 10ML SYR (RAD ONLY) 10 ML IV (11:14)
[2025-02-17] MEDS: 0.9 % SODIUM CHLORIDE 50 ML VIAL IV (11:14)
[2025-02-17] MEDS: IOPAMIDOL-370 (76%);100ML BOTTLE 85 ML IV (11:14)
== END 2025-02-17 11:15 | disposition home or self-care (01) ==
LOC: RT 07:49 → RAD 08:49
PROVIDERS: PCP Family Medicine; Visit Provider Nurse Practitioner
DX: E78.00 Pure hypercholesterolemia, unspecified (principal); E78.5 Hyperlipidemia, unspecified; E66.9 Obesity, unspecified; R60.9 Edema, unspecified; R07.9 Chest pain, unspecified; R94.39 Abnormal result of other cardiovascular function study; Z86.79 Personal history of other diseases of the circulatory system; Z82.49 Family history of ischemic heart disease and other diseases of the circulatory system; R00.0 Tachycardia, unspecified
CPT/HCPCS: 75574; 80048; 93306; Q9967

== ENCOUNTER → 2025-03-17 08:43 | Outpatient (CLI) | payer BC, SELFPAY ==
--- OUTSIDE RECORDS SUMMARY | 2025-03-24 08:45 | XMS_ITS | Clinical Summary ---
Author Organization [facility] Address [address] [place] [address] Care Team Providers Care Coordinator Skill Training Program Name Role Phone Nonstaff, Referring MD Primary Care Provider [phone] Allergies Active Allergy Reactions Criticality Noted Date Comments Codeine Other (See Comments) 12/26/2012 Causes hyperactivity Penicillins Hives,Rash,Other (Se e Comments) 12/26/2012 High fever Medications rizatriptan (MAXALT) 10 mg PO Tab Take 10 mg by mouth once as needed. May repeat in 2 hours in needed Active multivitamin 90-1-50 mg PO Tab Take 1 Tab by mouth daily. 30 Tab 11 01/07/2013 Active ibuprofen (MOTRIN) 600 mg PO tablet Take 1 Tab by mouth every 6 hours as needed. 30 Tab 0 01/07/2013 Active Active Problems Problem Noted Date Diagnosed Date Tubal reversal surgical follow up 01/06/2013 History of tubal ligation 01/06/2013 S/P laparotomy 01/06/2013 Family History Medical History Relation Name Comments Heart Problems Mother Anesthesia Complications Neg Hx Relation Name Status Comments Mother Social History Tobacco Use Types Packs/Day Years Used Date Smoking Tobacco: Never Smokeless Tobacco: Never Alcohol Use Standard Drinks/Week Comments No 0 (1 standard drink = 0.6 oz pur e alcohol) Comments No Sex and Gender Information Value Date Recorded Sex Assigned at Not on file Legal Sex Female 2:16 PM EDT Gender Identity Not on file Sexual Orientation Not on file Last Filed Vital Signs Vital Sign Reading Time Taken Comments Blood Pressure 90/58 01/07/2013 4:08 PM EDT Pulse 87 01/07/2013 4:08 PM EDT Temperature 36.9 C (98.5 F) 01/07/2013 4:08 PM EDT Respiratory Rate 20 01/07/2013 4:08 PM EDT Oxygen Saturation 97% 01/07/2013 4:08 PM EDT Inhaled Oxygen Concentration - - Weight 82.7 kg (182 lb 5 oz) 01/06/2013 10:28 AM EDT Height 161.3 cm (5' 3.5 ) 01/06/2013 10:28 AM ED T Body Mass Index 31.79 01/06/2013 10:28 AM EDT Plan of Treatment Not on file Insurance [phone] x2 (Work) [address] [employer] Advance Directives For more information, please contact: [phone] * Full Code (Latest Code Status on File) Date Activated Date Inactivated Comments 01/06/2013 5:18 PM 01/07/2013 9:54 PM Care Teams Coordinator Skill Training Program Relationship Specialty Start Date End Date Wily Madrid MD [address] [place] [address] PCP - General Family Medicine 12/26/12
--- OUTSIDE RECORDS SUMMARY | 2025-03-24 08:45 | XMS_ITS | Encounter Summary ---
Author Organization [facility] Address [address] [place] [address] Care Team Providers Care Cash Applications Coordinator Name Role Phone Angela Clement APRN Primary Care Provider [phone] Encounter Details Date Type Department Care Team (Late st Contact Info) Description 12/31/2023 Telephone [facility] PHYSICAL THERAPY [address] [facility] [address] [place] [address] Mali Reece, PT [address] [place] [address] Social History Tobacco Use Types Packs/Day Years Used Date Smoking Tobacco: Never Smokeless Tobacco: Never Alcohol Use Standard Drinks/Week Comments No 0 (1 standard drink = 0.6 oz pur e alcohol) AUDIT-C Answer Date Recorded Frequency of Alcohol Consumption Never 12/16/2018 Average Number of Drinks Not on file 019 Frequency of Binge Drinking Not on file 11/19 PHQ-2 Answer Date Recorded PHQ-2 Score 0 12/16/2018 Abuse Screen Answer Date Recorded Unsafe at Home or Work/School Not on file Feels Threatened by Someone? Not on file 07/2023 Does Anyone Keep You from Co ntacting Others or Doint Things Outside the Home? Not on file 05/30/2023 Physical Sign of Abuse Present Not on file 1 Housing Stability Answer Date Recorded Current Living Arrangements Not on file 05/19 Potentially Unsafe Housing Conditions Not on davonte e 05/30/2023 Family and Community Support Answer Holland e Recorded Help with Day-to-Day Activities Not on file 05/30/2023 Lonely or Isolated Not on file 05/30/2023 Employment Answer Date Recorded Do you want help finding or keeping work or a jabier b? Not on file 05/30/2023 Disabilities Answer Date Recorded Concentrating, Remembering, or Making Decisions Difficulty Not on file 05/30/2023 Doing Errands Independently Difficulty Not on fi le 05/30/2023 Education Answer Date Recorded Help with school or training? Not on file Preferred Language Not on file 05/30/2023 Comments Unknown Sex and Gender Information Value Date Recorded Sex Assigned at Not on file Legal Sex Female 8:08 AM EST Gender Identity Not on file Sexual Orientation Not on file documented as of this encounter Plan of Treatment Not on file documented as of this encounter Visit Diagnoses Not on filedocumented in this encounter Care Teams Cash Applications Coordinator Relationship Specialty Start Date End Date Angela Clement APRN [address] [place], [place] [id number] PCP - General Family Medicine 12/16/18 documented as of this encounter
--- OUTSIDE RECORDS SUMMARY | 2025-03-24 08:45 | XMS_ITS | Encounter Summary ---
Author Organization [facility] Address [address] [place] [address] Care Team Providers Care Butcher'S Assistant Name Role Phone Angela Clement APRN Primary Care Provider [phone] Encounter Details Date Type Department Care Team (Late st Contact Info) Description 11/06/2023 Telephone [facility] PHYSICAL THERAPY [address] [facility] [address] [place] [address] Jason Malone, PT [address] [facility] [address] [place] [address] Social History Tobacco Use Types Packs/Day Years [...] on filedocumented in this encounter Care Teams Butcher'S Assistant Relationship Specialty Start Date End Date Angela Clement, CLARISA [address] [place] [address] PCP - General Family Medicine 12/16/18 documented as of this encounter
--- OUTSIDE RECORDS SUMMARY | 2025-03-24 08:45 | XMS_ITS | Clinical Summary ---
Author Organization [facility] Address [address] [facility], [place] [address] Phone Care Team Providers Care Time Clock Repairer Name Role Phone Unavailable Primary Care Provider [...] History Medical History Date Comments Gestational diabetes SC (myocardial infarction) (HCC) 09/2015 Social History Tobacco [...] Procedure Name Priority Date/Time Associated Diagnosis Comments FAMILY RESOURCE COORDINATOR CYTOLOGY REPORT Routine 08/01/2012 1 2:00 AM EST from Last 3 Months or Most Recently Relevant to Health Maintenance Results * FAMILY RESOURCE COORDINATOR CYTOLOGY REPORT (08/01/2012 12:00 AM EST) Imaging Aide Cytology Report PATIENT NAME:LUZ MARINA ROACH Imaging Aide Cytology Report Accession Number Collected Date/Time Received Date/Time [id number] 08/01/12 00:00 EST 08/04/12 08:30 EST GY [...] confirmed before definitive therapy. Processed using the [employer] automated cytology screening device (SocialKaty). Wiring Mechanic: MR ERWIN 08/06/2012 Completed by: ANUPAMA MARTINES MD (Electronically signed by) 08/06/2012 [facility] Laboratory [facility] 08/01/2012 Alfredo Donovan MD PATHOLOGY ORDERABLES Final Result Performing Organization Address City/State/[facility] Co de Phone Number [facility] [address] [place] [address] from Last 3 Months or Most Recently Relevant to Health Maintenance Insurance O * Guarantor: LUZ MARINA ROACH Account Type Relation to Patient Date of Phone Billing Address [employer] Personal Family Account [address] [place] [address]
--- OUTSIDE RECORDS SUMMARY | 2025-03-24 08:45 | XMS_ITS | Clinical Summary ---
Author Organization [facility] Address [facility] [place] [address] Care Team Providers Care Jewelry Sales Associate Name Role Phone Unavailable Primary Care Provider [...] therelease of HIV test results or diagnoses. [id number] Allergies Active Allergy Reactions Criticality Noted Date Comments Codeine Other (See Comments) 12/14/2014 Causes hyperactivity. Had Morphine in March 2015 without rxn at [facility] Penicillins Hives,Rash Low High fever Oxycodone-Acetaminophe [...] Plan of Treatment Not on file Insurance [employer] ACCESS Advance Directives For more information, please contact: [phone] * Full Code (Latest Code Status on File) Date Activated Date Inactivated Comments 10/05/2015 8:32 PM 10/06/2015 4:18 PM * Full Code Date Activated Date Inactivated Comments 05/04/2015 2:42 PM 05/05/2015 5:41 PM * Full Code Date Activated Date Inactivated Comments 08/17/2013 9:33 PM 08/18/2013 1:56 PM
--- OUTSIDE RECORDS SUMMARY | 2025-03-24 08:45 | XMS_ITS | Clinical Summary ---
[facility] Organization [facility] Address [address] [place] [address] Care Team Providers Care Obstetrician Name Role Phone Angela Clement APRN Primary Care Provider [phone] Allergies Active Allergy Reactions Criticality Noted Date Comments Codeine Other (See Comments),Shortness Of Breath High 12/26/2012 Causes hyperactivity. Had Morphine in March 2015 without rxn at [facility] Causes hyperactivity Oxycodone-Acetaminop hen Anaphylaxis,Shortnes s Of Breath High 06/03/2015 Penicillins Rash Low 08/18/2018 Hydrocodone-Acetamin ophen Anaphylaxis High 08/18/2018 Medications fluticasone (FLONASE) 50 MCG/ACT nasal spray 2 sprays into the nostril(s) as directed by provider Daily. Active APAP-isomethepte ne-dichloral 65-100-325 MG per capsuleIndicatio ns:Hemiplegic migraine without status migrainosus, not intractable Take 1 capsule by mouth As Needed for Headache. 20 capsule 5 9 Active topiramate (TOPAMAX) 25 MG tabletIndication s:Hemiplegic migraine without status migrainosus, not intractable Take one daily at bedtime for one week then take twice a day 60 tablet 2 9 Active atorvastatin (LIPITOR) 20 MG tablet Take 1 tablet by mouth Daily. 4 Active Active Problems Problem Noted Date Diagnosed Date Acute midline low back pain without sciatica Crush injury of left foot 12/16/2018 Hemiplegic migraine without status migrainosus, not intractable 12/16/2018 Family History Medical History Relation Name Comments Diabetes Father Hyperlipidemia Father Hypertension Father Cancer Mother Uterine Diabetes Mother Hyperlipidemia Mother Hypertension Mother Relation Name Status Comments Father Mother Social History Tobacco Use Types Packs/Day [...] Sign Reading Time Taken Comments Blood Pressure 118/77 11/04/2023 10:00 AM EDT Pulse 81 11/04/2023 10:00 AM EDT Temperature 36.3 C (97.3 F) 11/04/2023 10:00 AM EDT Respiratory Rate 20 11/04/2023 10:00 AM EDT Oxygen Saturation 98% 11/04/2023 10:00 AM EDT Inhaled Oxygen Concentration - - Weight 90.7 kg (200 lb) 11/04/2023 10:00 AM EDT Height 162.6 cm (5' 4 ) 11/04/2023 10:00 AM EDT Body Mass Index 34.33 11/04/2023 10:00 AM EDT Plan of Treatment Health Maintenance Due Date Last Done Comments Annual Gynecologic Pelvic and Breast Exam 1981 ANNUAL PHYSICAL 12/16/2018 HEPATITIS C SCREENING 12/16/2018 MAMMOGRAM 2021 COVID-19 Vaccine ( season) 2024 04/06/2021, 03/10/2021 INFLUENZA VACCINE 05/19/2025 07/08/2020, , 06/19/2013, Additional history exists TDAP/TD VACCINES (3 - Td or Tdap) 08/19/2025 08/19/2015, 03/16/1996 Pneumococcal Vaccine 0-49 Aged Out No longer eligible based on patient's age to complete this topic [place] [address] [place] [address] [employer] Care Teams Obstetrician Relationship Specialty Start Date End Date Angela Clement APRN [address] [facility] [place] [address] PCP - General Family Medicine 12/16/18
== END ==
LOC: SL 03-24 08:43
PROVIDERS: PCP Nurse Practitioner; Visit Provider Nurse Practitioner
DX: G47.33 Obstructive sleep apnea (adult) (pediatric) (principal); G47.36 Sleep related hypoventilation in conditions classified elsewhere; E66.9 Obesity, unspecified; E78.00 Pure hypercholesterolemia, unspecified; R40.0 Somnolence; R60.9 Edema, unspecified; R94.39 Abnormal result of other cardiovascular function study; R07.9 Chest pain, unspecified; Z86.79 Personal history of other diseases of the circulatory system; Z82.49 Family history of ischemic heart disease and other diseases of the circulatory system
CPT/HCPCS: G0399

== ENCOUNTER 2025-05-26 12:05 | Outpatient (CLI) | payer BC, SELFPAY ==
[2025-05-26 13:37] LABS: Free T4 (Free Thyroxine) 0.78 ng/dl (0.78-2.19)
[2025-05-26 13:50] LABS: Thyroid Stimulating Hormone 1.82 uIU/mL (0.465-4.68)
[2025-05-28 14:12] LABS: Triiodothyronine (T3) Free 3.1 pg/mL (2.0-4.4)
== END 2025-05-26 23:59 | disposition home or self-care (01) ==
LOC: LAB 12:06
PROVIDERS: PCP Family Medicine; Visit Provider Specialist
DX: F41.9 Anxiety disorder, unspecified (principal)
CPT/HCPCS: 36415; 84439; 84443; 84481

== ENCOUNTER 2025-06-10 10:11 | Outpatient (CLI) | payer BC, SELFPAY ==
[2025-06-10 15:30] LABS: Chloride 103 mmol/L (98-107)
[2025-06-10 15:31] LABS: Potassium 4.1 mmoL/L (3.5-5.1); Sodium 136 mmol/L (136-145)
[2025-06-10 15:33] LABS: Anion Gap 8.1 mEq/L (5-15); Blood Urea Nitrogen 10 mg/dl (7-17); Carbon Dioxide 29 mmol/L (22.0-30.0); Creatinine,Serum 0.70 mg/dl (0.52-1.04); Estimated Glomerular Filt Rate 91 ml/min (>60); GFR (African American) 110 ML/MIN (>60)
[2025-06-10 15:34] LABS: Alanine Aminotransferase 24 U/L (12-78); Alkaline Phosphatase 89 U/L (38-126); Aspartate Amino Transferase 24 U/L (14-36); Bilirubin,Total 0.4 mg/dl (0.2-1.3); Calcium 8.8 mg/dl (8.4-10.2); Cholesterol 243 mg/dl (140-200); Glucose 115 mg/dl (74-100); HDL Cholesterol 38 mg/dl (40-60); Total Protein,Serum 6.8 g/dl (6.3-8.2)
[2025-06-10 15:43] LABS: Triglycerides 419 mg/dl (30-150)
[2025-06-10 16:27] LABS: Hemoglobin A1C 6.0 % (4.0-6.0)
[2025-06-10 16:59] LABS: Albumin Level 4.0 g/dl (3.5-5.0); Albumin/Globulin Ratio 1.4 (1.1-1.8); Globulin 2.8 g/dL (1.3-3.2)
--- OUTSIDE RECORDS SUMMARY | 2025-06-11 10:14 | XMS_ITS | Encounter Summary ---
Author Organization [facility]stem Address [address] [place] [address] Care Team Providers Care Continuing Education Instructor Name Role Phone Angela Clement APRN Primary Care Provider [phone] Encounter Details Date Type Department Care Team (Late st Contact Info) Description 12/31/2023 Telephone [facility] PHYSICAL THERAPY [address] [facility] [address] [place] [address] Mali Reece, PT [address] [place] [address] Social History Tobacco Use Types Packs/Day Years [...] on filedocumented in this encounter Care Teams Continuing Education Instructor Relationship Specialty Start Date End Date Angela Clement, CLARISA [address] [place] [address] PCP - General Family Medicine 12/16/18 documented as of this encounter
--- OUTSIDE RECORDS SUMMARY | 2025-06-11 10:14 | XMS_ITS | Clinical Summary ---
Author Organization [facility] Address [facility] [place] [address] Care Team Providers Care Film Loader Name Role Phone Unavailable Primary Care Provider [...] therelease of HIV test results or diagnoses. [id number] Allergies Active Allergy Reactions Criticality Noted Date Comments Codeine Other (See Comments) 12/14/2014 Causes hyperactivity. Had Morphine in March 2015 without rxn at [facility] Penicillins Hives,Rash Low High fever Oxycodone-Acetaminophe [...] Plan of Treatment Not on file Insurance [employer] ACCESS Advance Directives For more information, please contact: [phone] * Full Code (Latest Code Status on File) Date Activated Date Inactivated Comments 10/05/2015 8:32 PM 10/06/2015 4:18 PM * Full Code Date Activated Date Inactivated Comments 05/04/2015 2:42 PM 05/05/2015 5:41 PM * Full Code Date Activated Date Inactivated Comments 08/17/2013 9:33 PM 08/18/2013 1:56 PM
--- OUTSIDE RECORDS SUMMARY | 2025-06-11 10:14 | XMS_ITS | Encounter Summary ---
Author Organization [facility] Address [address] [place] [address] Care Team Providers Care Qual Research Manager Name Role Phone Angela Clement APRN Primary Care Provider [phone] Encounter Details Date Type Department Care Team (Late st Contact Info) Description 11/06/2023 Telephone [facility] PHYSICAL THERAPY [address] [facility] [address] [place] [address] Jason Malone, PT [address] [facility] [address] [place] [address] Social History Tobacco Use Types Packs/Day Years [...] on filedocumented in this encounter Care Teams Qual Research Manager Relationship Specialty Start Date End Date Angela Clement, CLARISA [address] [place] [address] PCP - General Family Medicine 12/16/18 documented as of this encounter
--- OUTSIDE RECORDS SUMMARY | 2025-06-11 10:14 | XMS_ITS | Clinical Summary ---
[facility] Address [address] [place] [address] Care Team Providers Care Cyber Security Consultant Name Role Phone Angela Clement APRN Primary Care Provider [phone] Allergies Active Allergy Reactions Criticality Noted Date Comments Codeine Other (See Comments),Shortness Of Breath High 12/26/2012 Causes hyperactivity. Had Morphine in March 2015 without rxn at [facility] Causes hyperactivity Oxycodone-Acetaminop hen Anaphylaxis,Shortnes s [...] 12/16/2018 HEPATITIS C SCREENING 12/16/2018 MAMMOGRAM 2021 INFLUENZA VACCINE 03/19/2025 07/08/2020, , 06/19/2013, Additional history exists TDAP/TD VACCINES (3 - Td or Tdap) 08/19/2025 08/19/2015, 03/16/1996 Pneumococcal Vaccine 0-49 Aged Out No longer eligible based on patient's age to complete this topic Insurance Care Teams Cyber Security Consultant Relationship Specialty Start Date End Date Angela Clement APRN [address] [place] [address] PCP - General Family Medicine 12/16/18
--- OUTSIDE RECORDS SUMMARY | 2025-06-11 10:14 | XMS_ITS | Clinical Summary ---
Author Organization [facility] Address [address] [place] [address] Care Team Providers Care Logistics Engineering Manager Name Role Phone Nonstaff, Referring MD Primary Care Provider [phone] Allergies Active Allergy Reactions Criticality Noted Date [...] Plan of Treatment Not on file Insurance [phone] x2 (Work) [address] [employer] Advance Directives For more information, please contact: [phone] * Full Code (Latest Code Status on File) Date Activated Date Inactivated Comments 01/06/2013 5:18 PM 01/07/2013 9:54 PM Care Teams Logistics Engineering Manager Relationship Specialty Start Date End Date Wily Madrid MD [address] [place] [address] PCP - General Family Medicine 12/26/12
== END 2025-06-10 23:59 ==
LOC: LAB.DROPOF 06-11 10:06
PROVIDERS: PCP Family Medicine; Visit Provider Family Medicine
DX: E78.5 Hyperlipidemia, unspecified (principal); R73.03 Prediabetes
CPT/HCPCS: 80053; 80061; 83036

== ENCOUNTER 2025-06-21 09:19 | Outpatient (CLI) | payer BC, SELFPAY ==
--- OUTSIDE RECORDS SUMMARY | 2025-06-21 09:25 | XMS_ITS | Encounter Summary ---
Author Organization [facility] ystem Address [address] [place] [address] Care Team Providers Care Electric Transfer Operator Name Role Phone Angela Clement APRN Primary Care Provider [phone] Encounter Details Date Type Department Care Team (Late st Contact Info) Description 12/31/2023 Telephone [facility] PHYSICAL THERAPY [address] [facility] [address] [place] [address] Mali Reece, PT [address] [place] [address] Social History Tobacco Use Types Packs/Day Years [...] on filedocumented in this encounter Care Teams Electric Transfer Operator Relationship Specialty Start Date End Date Angela Clement, CLARISA [address] [place] [address] PCP - General Family Medicine 12/16/18 documented as of this encounter
--- OUTSIDE RECORDS SUMMARY | 2025-06-21 09:25 | XMS_ITS | Clinical Summary ---
Author Organization [facility] Address [address] [facility], [place] [address] Phone Care Team Providers Care Desulfurizer Operator Name Role Phone Unavailable Primary Care [...] History Medical History Date Comments Gestational diabetes [place] (myocardial infarction) (HCC) 09/2015 Social History Tobacco [...] Cancer Screening 2021 COVID-19 Vaccine ( season) 2025 Influenza Vaccine (#1) 2025 4, 06/19/2013, 05/19/2012 DTaP/TDaP/Td (7 - Td or Tdap) 08/19/2025 08/19/2015, 03/16/1996, 04/18/1986, Additional history exists Meningococcal B Vaccine Aged Out No l onger eligible based on patient's age to complete this topic Pneumococcal Vaccine 0-49 Aged Out No longer eligible based on patient's age to complete this topic Procedures Procedure Name Priority Date/Time Associated Diagnosis Comments DEPUTY CLERK CYTOLOGY REPORT Routine 08/01/2012 1 2:00 AM EST from Last 3 Months or Most Recently Relevant to Health Maintenance Results * DEPUTY CLERK CYTOLOGY REPORT (08/01/2012 12:00 AM EST) Gun Repair Clerk Cytology Report PATIENT NAME:LUZ MARINA ROACH Gun Repair Clerk Cytology Report Accession Number Collected Date/Time Received Date/Time [id number] 08/01/12 00:00 EST 08/04/12 08:30 EST GY [...] confirmed before definitive therapy. Processed using the KiggitPrep Housecleaner Floor automated cytology screening device (KlikkaPromo). Press Operator Printing: MR ERWIN 08/06/2012 Completed by: ANUPAMA MARTINES MD (Electronically signed by) 08/06/2012 [facility] 08/01/2012 Alfredo Donovan MD PATHOLOGY ORDERABLES Final Result Performing Organization Address City/State/[facility] Co de Phone Number [facility] [address] [place] [address] from Last 3 Months or Most Recently Relevant to Health Maintenance Insurance O * Guarantor: LUZ MARINA ROACH Account Type Relation to Patient Date of Phone Billing Address SEP Personal Family Account [address] [place] [address]
--- OUTSIDE RECORDS SUMMARY | 2025-06-21 09:25 | XMS_ITS | Encounter Summary ---
Author Organization [facility] ystem Address [address] [place] [address] Care Team Providers Care Patent Agent Name Role Phone Angela Clement APRN Primary Care Provider [phone] Encounter Details Date Type Department Care Team (Late st Contact Info) Description 11/06/2023 Telephone [facility] PHYSICAL THERAPY [address] [facility] [address] [place] [address] Jason Malone, PT [address] [facility] [address] [place] [address] Social History Tobacco Use Types Packs/Day Years [...] on filedocumented in this encounter Care Teams Patent Agent Relationship Specialty Start Date End Date Angela Clement, CLARISA [address] [place] [address] PCP - General Family Medicine 12/16/18 documented as of this encounter
--- OUTSIDE RECORDS SUMMARY | 2025-06-21 09:26 | XMS_ITS | Clinical Summary ---
Author Organization [facility] Address [address] [place] [address] Care Team Providers Care Barrel Driller Name Role Phone Angela Clement APRN Primary Care Provider [phone] Allergies Active Allergy Reactions Criticality Noted Date Comments Codeine Other (See Comments),Shortness Of Breath High 12/26/2012 Causes hyperactivity. Had Morphine in March 2015 without rxn at [facility] Causes hyperactivity Oxycodone-Acetaminop hen Anaphylaxis,Shortnes s Of [...] to complete this topic Insurance Care Teams Barrel Driller Relationship Specialty Start Date End Date Angela Clement APRN [address] [place] [address] PCP - General Family Medicine 12/16/18
--- OUTSIDE RECORDS SUMMARY | 2025-06-21 09:26 | XMS_ITS | Clinical Summary ---
Author Organization [facility] Address [facility] [place] [address] Care Team Providers Care Senior Engineering Technician Name Role Phone Unavailable Primary Care Provider [...] therelease of HIV test results or diagnoses. [id number] Allergies Active Allergy Reactions Criticality Noted Date Comments Codeine Other (See Comments) 12/14/2014 Causes hyperactivity. Had Morphine in March 2015 without rxn at [facility] Penicillins Hives,Rash Low High fever [...] Plan of Treatment Not on file Insurance [employer] [facility] Address: [facility] [address] [place] [address] Advance Directives For more information, please contact: [phone] * Full Code (Latest Code Status on File) Date Activated Date Inactivated Comments 10/05/2015 8:32 PM 10/06/2015 4:18 PM * Full Code Date Activated Date Inactivated Comments 05/04/2015 2:42 PM 05/05/2015 5:41 PM * Full Code Date Activated Date Inactivated Comments 08/17/2013 9:33 PM 08/18/2013 1:56 PM
--- OUTSIDE RECORDS SUMMARY | 2025-06-21 09:26 | XMS_ITS | Clinical Summary ---
Author Organization [facility] Address [address] [place] [address] Care Team Providers Care Software Sales Manager Name Role Phone Nonstaff, Referring MD Primary Care Provider [phone] Allergies Active Allergy Reactions Criticality Noted Date [...] Plan of Treatment Not on file Insurance [phone] x2 (Work) [address] [employer] Advance Directives For more information, please contact: [phone] * Full Code (Latest Code Status on File) Date Activated Date Inactivated Comments 01/06/2013 5:18 PM 01/07/2013 9:54 PM Care Teams Software Sales Manager Relationship Specialty Start Date End Date Wily Madrid MD [address] [place] [address] PCP - General Family Medicine 12/26/12
== END 2025-06-21 23:59 | disposition home or self-care (01) ==
LOC: LAB 09:20
PROVIDERS: PCP Family Medicine; Visit Provider Family Medicine
DX: N76.0 Acute vaginitis (principal); R10.20 Pelvic and perineal pain unspecified side; R35.0 Frequency of micturition
CPT/HCPCS: 87210

== ENCOUNTER 2025-07-22 08:14 | Outpatient (CLI) | payer BC, SELFPAY ==
--- NOTE | 2025-07-22 08:30 | MM_ITS ---
PROCEDURE INFORMATION: Exam: MG Bilateral Screening 3D Mammography Exam date and time: 07/22/2025 8:16 AM Age: 45 years old Clinical indication: Screening examination. Her maternal aunt and maternal great aunt had breast cancer. TECHNIQUE: Imaging protocol: Bilateral Screening tomosynthesis and 2D mammography including computer-aided detection (CAD) when performed. COMPARISON: 1. MG MM DIG MAMM DX UNILAT RT CAD 03/20/2024 2:10 PM 2. US BREAST RT COMPLETE 03/20/2024 2:52 PM MG MM DIG SCREENING MAMM BI W/CAD 03/12/2024 9:46 AM FINDINGS: MAMMOGRAPHY: Breast composition: There are scattered areas of fibroglandular density. Mass: None. Architectural distortion: None. Calcifications: No suspicious calcifications. Asymmetric density: No developing asymmetry. Skin thickening: None. Axillary adenopathy: None. IMPRESSION: No mammographic evidence of malignancy. Annual screening is recommended unless otherwise clinically indicated. ASSESSMENT: BI-RADS Category 1: Negative.
== END 2025-07-22 23:59 | disposition home or self-care (01) ==
LOC: RAD 08:15
PROVIDERS: PCP Family Medicine; Visit Provider Family Medicine
DX: Z12.31 Encounter for screening mammogram for malignant neoplasm of breast (principal); Z80.3 Family history of malignant neoplasm of breast; R92.323 Mammographic fibroglandular density, bilateral breasts
CPT/HCPCS: 77063; 77067